=== PATIENT | female | born 1995 | race Asian ===

== ENCOUNTER 2022-03-09 08:55 | Outpatient (CLI) | payer OTHER, SELFPAY ==
--- NOTE | 2022-03-09 10:15 | CRLHL7_ITS ---
For Patients: As a result of the Century Cures Act, medical imaging exams and procedure reports are released immediately into your electronic medical record. You may view this report before your referring provider. If you have questions, please contact your health care provider. INDICATION: Left side Pelvic pain COMPARISON: none TECHNIQUE: 2D gonzalez scale and color Doppler images were acquired of the pelvis using a transabdominal and transvaginal approach. FINDINGS: Sonographic images demonstrate a normal size and smooth outer contour of the uterus. Uterus measures 7 point cm in length by 2.9 cm in AP diameter by 4.7 cm in transverse dimension. The myometrium has a normal uniform echotexture. The endometrial lining measures 2 mm in composite thickness. The right ovary measures 3.3 x 2.1 x 1.6 cm in size and the left ovary measures 2.8 x 1.6 x 2.0 cm. The ovaries demonstrate normal arterial and venous blood flow on color Doppler analysis. There are no suspicious fluid collections within the cul-de-sac. IMPRESSION: Normal ovaries. No adnexal mass or excess pelvic free fluid. Dictated by José Miguel Willams MD @ 03/09/2022 10:59:32 AM (Electronically Signed)
== END 2022-03-09 08:56 | disposition home or self-care (01) ==
LOC: US 08:56
PROVIDERS: PCP Family Medicine; Visit Provider Physician Assistant
DX: R10.2 Pelvic and perineal pain (principal); N13.30 Unspecified hydronephrosis; N20.1 Calculus of ureter
CPT/HCPCS: 76830; 76856

== ENCOUNTER 2022-03-09 11:06 | Emergency (ER) | payer OTHER, SELFPAY ==
[2022-03-09 11:29] VITALS: BP 107/81; PULSE 92; RESP 18; TEMP 36.9; O2SAT 99; BMI 25.5
--- NOTE | 2022-03-09 11:56 | CRLHL7_ITS ---
For Patients: As a result of the Cures Act, medical imaging exams and procedure reports are released immediately into your electronic medical record. You may view this report before your referring provider. If you have questions, please contact your health care provider. INDICATION: Left lower quadrant pain. TECHNIQUE: CT abdomen and pelvis acquired with 54 mL Isovue 370 IV contrast. Coronal and sagittal reformats were generated. COMPARISON: None. FINDINGS: Lower chest: Unremarkable. Liver: Unremarkable. Gallbladder and bile ducts: Unremarkable. No stones or inflammation. No biliary dilation. Spleen: Unremarkable. Pancreas: Unremarkable. Adrenal glands: Unremarkable. No nodules. Kidneys and Ureters: Calcification in the proximal left ureter measures approximately 5 mm (2/47) and results in mild left hydronephrosis and a delayed nephrogram. Normal appearance of the right kidney. No right hydronephrosis. No cortical lesions on either side. Lymph Nodes and Retroperitoneum: Unremarkable. Vasculature: Unremarkable. GI tract: Unremarkable. Normal in caliber. Normal appendix. Peritoneum/Abdominal Wall: Unremarkable. No free air or free fluid. Pelvic Viscera: Unremarkable. Bladder: Unremarkable. Bones: Unremarkable for age. IMPRESSION: 1. Proximal left ureteral stone resulting in mild left hydronephrosis and delayed nephrogram. 2. No other significant CT abnormality in the abdomen or pelvis. Please note that all CT scans at this facility use dose modulation, iterative reconstruction, and/or weight-based dosing when appropriate to reduce radiation dose to as low as reasonably achievable. Dictated by Toro Jackson MD @ 03/09/2022 1:04:16 PM (Electronically Signed)
--- NOTE | 2022-03-09 11:57 | ED.ABDPAIN ---
HPI - Abdominal Pain General Chief Complaint: Abdominal Pain Stated Complaint: Lower left abdominal pain Time Seen by Provider: 03/09/22 11:22 History of Present Illness HPI narrative: This 26-year-old female comes in from OBGYN clinic because of severe left-sided abdominal pain. She states that she had an episode of this pain a couple weeks ago and again a couple days ago. He was very severe a couple days ago with nausea and vomiting. She had severe pain again today but at the time of arrival here in the emergency department her pain is improved again. She did have an ultrasound and labs done at the OBGYN clinic with reassuring results. She does not know of any family history of kidney stones and does not have any personal history of such. She does not report any fevers. Related Data Previous Rx's Medication Instructions Recorded hydrocodone 5 mg-acetaminophen 325 1 tab PO Q4-6H PRN pain #20 tabs 03/09/22 mg tablet ketorolac 10 mg tablet 10 mg PO Q8H 5 days #15 tabs 03/09/22 ondansetron HCl 4 mg tablet 4 mg PO Q6H #20 tabs 03/09/22 Allergies Allergy/AdvReac Type Severity Reaction Status Date / Time No Known Drug Allergies Allergy Verified 03/09/22 11:39 Review of Systems Narrative Constitutional: No fevers, no weight gain or loss. Eyes: No discharge. No vision changes. HENT: No congestion, no sore throat, no ear pain. Cardiovascular: No chest pain, no palpitations. Respiratory: No shortness of breath, no wheezes, no cough. Gastrointestinal: No diarrhea. Left-sided abdominal pain with occasional nausea and vomiting. Genitourinary: No dysuria, no hematuria. Musculoskeletal: Normal range of motion. Skin: No rashes, no pruritis. Neurological: No dizziness, weakness, sensory change, speech change. Endo/Heme/Allergies: No bruising or bleeding. No polydipsia. Pysch: no suicidality, no anxiety, no insomnia. All other systems reviewed and are negative. 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 HEENT: Normocephalic, atraumatic. Neck: Normal range of motion. Nontender. Supple. Heart: Regular. No murmurs. Normal rate. Intact distal pulses. Lungs: Clear to auscultation. No chest discomfort. No wheezes, rhonchi, or rales. Abdomen: Normal bowel sounds. Tenderness in the left abdomen.. No rebound tenderness. Genitalia: Deferred. Back: No midline tenderness. Normal range of motion. Extremities: Normal range of motion. No injury. Skin: Intact. No rash. Warm. No erythema or pallor. Neurologic: No altered sensation. No weakness. Alert and oriented. Psychiatric: No suicidality. No anxiety or depression. No insomnia. Nursing notes and vitals signs are reviewed. Const: Vital Signs, click to edit/add: Vital Signs - 24 hr 03/09/22 11:29 Temperature 98.4 F Pulse Rate [Pulse Oximeter] 92 Respiratory Rate 18 Blood Pressure [Ri ght Upper Arm] 107/81 Pulse Oximetry 99 Oxygen Delivery Me thod Room Air Course Vital Signs Vital signs: Initial Vital Signs Temperature 98.4 F 03/09/22 11:29 Temperature Source Temporal Artery Scan 03/09/22 11:29 Pulse Rate 92 03/09/22 11:29 Pulse Rhythm 03/09/22 11:29 Respiratory Rate 18 03/09/22 11:29 Blood Pressure 107/81 03/09/22 11:29 Blood Pressure Mean 89 03/09/22 11:29 Blood Pressure Position Supine 03/09/22 11:29 Pulse Oximetry 99 03/09/22 11:29 Oxygen Delivery Method 03/09/22 11:29 Vital Signs Temperature 98.4 F 03/09/22 11:29 Pulse Rate 92 03/09/22 11:29 Respiratory Rate 18 03/09/22 11:29 Blood Pressure 107/81 03/09/22 11:29 Pulse Oximetry 99 03/09/22 11:29 Oxygen Delivery Method 03/09/22 11:29 Temperature 98.4 F 03/09/22 11:29 Pulse Rate 92 03/09/22 11:29 Respiratory Rate 18 03/09/22 11:29 Blood Pressure 107/81 03/09/22 11:29 Pulse Oximetry 99 03/09/22 11:29 Oxygen Delivery Method 03/09/22 11:29 MDM - Abdominal Pain MDM Narrative Medical decision making narrative: This patient comes in with episodes of severe left-sided abdominal pain. At the time of my visit her pain is not severe. She did have labs including blood and urine along with an ultrasound in clinic just prior to arrival. An IV was established for purposes of a contrast enhanced CT scan of the abdomen and pelvis. CT imaging returns with evidence of a 5 mm stone in the left ureter. This would account for the patient's symptoms. No other labs or imaging was ordered as she just came from clinic where though studies were completed. The patient received prescription for Toradol, Norc, and Zofran. I advised her to return if symptoms are worsening or persistent. Imaging Data CT scan - abdomen: Radiologist's impression: 1. Proximal left ureteral stone resulting in mild left hydronephrosis and delayed nephrogram. 2. No other significant CT abnormality in the abdomen or pelvis. Discharge Plan Discharge Clinical Impression: Calculus, ureteral Patient Disposition: Home, Self-Care Condition: Improved Additional Instructions: Take medication as prescribed and needed. Follow up with MD or return if worsening. Prescriptions: New hydrocodone-acetaminophen 5-325 mg tablet 1 tab PO Q4-6H PRN (Reason: pain) Qty: 20 0RF ondansetron HCl 4 mg tablet 4 mg PO Q6H Qty: 20 0RF ketorolac 10 mg tablet 10 mg PO Q8H 5 Days Qty: 15 0RF Follow Up/Referrals: Van Boyer MD [Primary Care Provider] - Stand Alone Forms: [employer] Info Instructions
[2022-03-09 14:16] VITALS: BP 107/81; PULSE 92; RESP 18; TEMP 36.9
== END 2022-03-09 14:20 | disposition home or self-care (01) ==
PROVIDERS: Emergency Provider Emergency Medicine Emergency Medical Services; PCP Family Medicine
DX: N20.1 Calculus of ureter (principal)
CPT/HCPCS: 74177; 87086; 99284; 99285; Q9967

== ENCOUNTER 2022-03-24 20:04 | Emergency (ER) | payer OTHER, SELFPAY ==
[2022-03-24 20:57] VITALS: BP 119/84; PULSE 86; RESP 14; TEMP 36.3; O2SAT 97; BMI 25.8
[2022-03-24 21:16] LABS: Appearance Urine Slightly Cloudy (Clear); Bilirubin Urine Negative (Negative); Blood Urine 3+ (Negative); Color Urine Yellow (Yellow); Glucose Urine Negative (Negative); Ketones Urine Negative (Negative); Leukocyte Esterase Urine Trace (Negative); Nitrite Urine Negative (Negative); Protein Urine Trace (Negative); Specific Gravity Urine 1.015 (1.000-1.030); Urobilinogen Urine 0.2 (0.2-1.0)
--- NOTE | 2022-03-24 21:28 | ED.ABDPAIN ---
HPI - Abdominal Pain General Chief Complaint: Abdominal Pain Stated Complaint: Kidney stone Time Seen by Provider: 03/24/22 21:20 History of Present Illness HPI narrative: Pt is a 26 year old woman who was seen approximately 2 weeks ago with a 5 mm kidney stone on the left who presents with the return of her pain. Pt has no dysuria. test at her last vitis was negative and pt is on IM Depoprovera. Pt has had no nausea or vomiting but does have 6/10 pain in the left flank further down that at her last visit. She has been feeling well for the most part since being discharged 2 weeks ago. Pain is sharp and seems to radiate to the groin. Related Data Previous Rx's Medication Instructions Recorded hydrocodone 5 mg-acetaminophen 325 1 tab PO Q4-6H PRN pain #20 tabs 03/09/22 mg tablet ketorolac 10 mg tablet 10 mg PO Q8H 5 days #15 tabs 03/09/22 ondansetron HCl 4 mg tablet 4 mg PO Q6H #20 tabs 03/09/22 desogestrel 0.15 mg-ethinyl 1 tab PO QDAY #112 tabs 03/10/22 estradiol 0.03 mg tablet (Apri) tamsulosin 0.4 mg capsule 0.4 mg PO QDAY #14 caps 03/15/22 Allergies Allergy/AdvReac Type Severity Reaction Status Date / Time No Known Drug Allergies Allergy Verified 03/09/22 11:39 Review of Systems Status of ROS Reports: 10 or more systems reviewed and unremarkable except as noted in History and below [facility] Medical History Asthma Surgical History History of third molar tooth extraction Family History Family/Other Adopted 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 EYES: No scleral icterus. ENT: Tympanic membranes and oropharynx normal. THYROID: no thyroid nodules or thyromegaly. LYMPH: No supraclavicular or cervical lymphadenopathy. SKIN: Visible skin seen during exam normal or with benign process only. EXT: No dependent lower extremity pedal edema. HEART: Regular rate and rhythm with no murmurs, rubs, or gallops. LUNGS: Clear to auscultation bilaterally with no crackles or wheezes. ABD: Soft, non tender, non distended. PSYCH: Good eye contact, speech is not pressured. Const: Vital Signs, click to edit/add: Vital Signs - 24 hr 03/24/22 20:57 Temperature 97.3 F L Pulse Rate [Pulse Oximeter] 86 Respiratory Rate 14 Blood Pressure [Ri ght Upper Arm] 119/84 Pulse Oximetry 97 Oxygen Delivery Me thod Room Air Course Course Hospital Course: Pt seen and examined. IV placed. CT stone protocol requested. CBC, CMP, Amylase ordered. Pt given ns one liter, and toradol 30. Reevaluation(s) Reevaluation #1: Pt feeling better. Lab work does now show urinary WBCS concerning for infection. Time: 22:42 Vital Signs Vital signs: Initial Vital Signs Temperature 97.3 F L 03/24/22 20:57 Temperature Source Temporal Artery Scan 03/24/22 20:57 Pulse Rate 86 03/24/22 20:57 Pulse Rhythm 03/24/22 20:57 Respiratory Rate 14 03/24/22 20:57 Blood Pressure 119/84 03/24/22 20:57 Blood Pressure Mean 95 03/24/22 20:57 Blood Pressure Position Sitting 03/24/22 20:57 Pulse Oximetry 97 03/24/22 20:57 Oxygen Delivery Method 03/24/22 20:57 Vital Signs Temperature 97.3 F L 03/24/22 20:57 Pulse Rate 86 03/24/22 20:57 Respiratory Rate 14 03/24/22 20:57 Blood Pressure 119/84 03/24/22 20:57 Pulse Oximetry 97 03/24/22 20:57 Oxygen Delivery Method 03/24/22 20:57 Temperature 97.3 F L 03/24/22 20:57 Pulse Rate 86 03/24/22 20:57 Respiratory Rate 14 03/24/22 20:57 Blood Pressure 119/84 03/24/22 20:57 Pulse Oximetry 97 03/24/22 20:57 Oxygen Delivery Method 03/24/22 20:57 MDM - Abdominal Pain MDM Narrative Medical decision making narrative: Pt diagnosed with kidney stone roughly 2 weeks ago presents with return of pain lower on the left. Pt now has evidence of UTI. Pt treated with saline and toradol with improvement of symptoms. Pt has Tamsulosin and Hydrocodone at home. We will add Bactrim for UTI as well. Recommended aggresive hydration at home and follow up with PCP Sunday by phone to request a Urology consult for possible stone extraction. Differential Diagnosis Differential diagnosis: Likely abdominal pain, acute appendicitis, calculus of kidney, constipation, diverticulitis, endometriosis, gastroenteritis, pancreatitis and small bowel obstruction Medical Records Attestation: I reviewed the patient's medical records. Lab Data Labs: Lab Results 03/24/22 03/24/22 03/24/22 Range/Units 21:07 22:00 22:00 WBC 8.57 (4.50-11.00) K/uL RBC 5.02 (4.00-5.20) m/uL Hgb 14.5 (12.0-16.0) gm/dL Hct 42.9 (33.0-51.0) % MCV 86 (80-100) fL MCH 29 (26-34) pg MCHC 34 (32-36) gm/dL RDW Coeff of Princess 12.3 (11.5-15.5) % Plt Count 327 (140-440) K/uL Neut % (Auto) 72.4 H (42.0-72.0) % Lymph % (Auto) 19.3 L (20-44) % [place] % (Auto) 4.7 (0.0-11.0) % Eos % (Auto) 2.3 (0.0-7.0) % Baso % (Auto) 0.6 (0.0-3.0) % Neut # (Auto) 6.20 (1.7-7.0) K/uL Lymph # (Auto) 1.70 (0.90-2.90) K/uL [place] # (Auto) 0.40 (0.00-0.90) K/UL Eos # (Auto) 0.20 (0.00-0.50) K/uL Baso # (Auto) 0.05 (0.00-0.30) K/uL Abs Immat Gran (auto) 0.06 (0.00-0.30) K/uL Imm/Tot Granulo (auto) 0.7 % Sodium 140 (135-149) mmol/L Potassium 3.9 (3.6-5.1) mmol/L Chloride 102 (96-114) mmol/L Carbon Dioxide 25 (20-32) mmol/L BUN 11 (5-24) mg/dL Creatinine 0.6 (0.5-1.5) mg/dL Estimated Creat Clear 118.95 Estimated GFR 125 ml/min Glucose 104 (60-115) mg/dL Calcium 9.4 (8.4-10.6) mg/dL Total Bilirubin 0.7 (0.1-1.5) mg/dL AST 28 (12-35) U/L ALT 22 (4-35) U/L Alkaline Phosphatase 88 (40-150) U/L Total Protein 8.5 H (6.0-8.3) g/dL Albumin 4.9 (3.3-5.0) g/dL Amylase 59 (18-89) U/L Urine Color Yellow (Yellow) Urine Appearance Slightly Cloudy A (Clear) Urine pH 7.0 (5.0-8.5) Ur Specific [place] 1.015 (1.000-1.030) Urine Protein Trace A (Negative) Urine Glucose (UA) Negative (Negative) Urine Ketones Negative (Negative) Urine Blood 3+ A (Negative) Urine Nitrite Negative (Negative) Urine Bilirubin Negative (Negative) Urine Urobilinogen 0.2 (0.2-1.0) Ur Leukocyte Esterase Trace A (Negative) Urine RBC 0-2 (0-2) Urine WBC 10-25 A (0-5) Ur Squamous Epith Cells Few (None-Few) Urine Bacteria None (None) Discharge Plan Discharge Clinical Impression: Kidney calculi Condition: Stable Instructions: Kidney Stones (ED) Additional Instructions: Plenty of fluids Bactrim as directed Continue current medications Follow up with PCP if stone not passed by [facility] to discuss Urology consultation. Activity Level: No Restrictions Discharge Diet: Regular Prescriptions: No Action hydrocodone-acetaminophen 5-325 mg tablet 1 tab PO Q4-6H PRN (Reason: pain) Qty: 20 0RF ondansetron HCl 4 mg tablet 4 mg PO Q6H Qty: 20 0RF ketorolac 10 mg tablet 10 mg PO Q8H 5 Days Qty: 15 0RF desogestrel-ethinyl estradiol [Apri] 0.15-0.03 mg tablet 1 tab PO QDAY Qty: 112 3RF Rx Instructions: TO TAKE CONTINUOUSLY, ALLOWING FOR A PERIOD EVERY 3 MONTHS tamsulosin 0.4 mg capsule 0.4 mg PO QDAY Qty: 14 0RF Follow Up/Referrals: Van Boyer MD [Primary Care Provider] - Stand Alone Forms: [employer] Info Instructions
--- NOTE | 2022-03-24 21:32 | CRLHL7_ITS ---
For Patients: As a result of the Century Cures Act, medical imaging exams and procedure reports are released immediately into your electronic medical record. You may view this report before your referring provider. If you have questions, please contact your health care provider. INDICATION: Left flank pain. TECHNIQUE: CT abdomen and pelvis without contrast. COMPARISON: None. FINDINGS: Lower chest: Unremarkable. Liver: Normal in size and attenuation. No suspicious masses. Gallbladder and bile ducts: No stones or inflammation. No biliary dilatation. Pancreas: Unremarkable. No mass or inflammation. Spleen: Normal in size. No masses. Adrenal glands: Normal in size. No nodules. Kidneys: Normal right kidney. 5 mm stone within the left mid ureter with associated mild proximal hydroureteronephrosis. GI tract: Unremarkable. Normal in caliber. No sign of mass or inflammation. The appendix is not clearly visualized. Vasculature: Abdominal aorta is normal in caliber. Lymph nodes: No lymphadenopathy. Peritoneum/Abdominal Wall: Unremarkable. No free air or significant free fluid. Pelvis: Unremarkable bladder. No pelvic masses. Bones: Unremarkable for age. IMPRESSION: 5 mm stone within the left mid ureter with associated mild hydroureteronephrosis. Please note that all CT scans at this facility use dose modulation, iterative reconstruction, and/or weight-based dosing when appropriate to reduce radiation dose to as low as reasonably achievable. Dictated by Jacob Asher MD @ 03/24/2022 10:18:08 PM (Electronically Signed)
[2022-03-24 21:36] LABS: RBC Urine 0-2 (0-2); Squamous Epithelial Cell Urine Few (None-Few)
[2022-03-24] MEDS: KETOROLAC 30 MG/ML inj IVP (22:00)
[2022-03-24 22:21] LABS: Basophils Absolute Auto 0.05 K/uL (0.00-0.30); Basophils Percent Auto 0.6 % (0.0-3.0); Eosinophils Percent Auto 2.3 % (0.0-7.0); Hematocrit 42.9 % (33.0-51.0); Hemoglobin* 14.5 gm/dL (12.0-16.0); Immature Granulocytes Abs Auto 0.06 K/uL (0.00-0.30); Immature Granulocytes Pct Auto 0.7 %; Lymphocytes Percent Auto 19.3 % (20-44); Mean Corpuscular HGB Conc 34 gm/dL (32-36); Mean Corpuscular Hemoglobin 29 pg (26-34); Mean Corpuscular Volume 86 fL (80-100); Monocytes Percent Auto 4.7 % (0.0-11.0); Neutrophils Percent Auto 72.4 % (42.0-72.0); Platelet Count* 327 K/uL (140-440); RDW Coefficient of Variation % 12.3 % (11.5-15.5); Red Blood Count 5.02 m/uL (4.00-5.20); White Blood Count* 8.57 K/uL (4.50-11.00)
[2022-03-24 22:27] LABS: Albumin* 4.9 g/dL (3.3-5.0); Chloride* 102 mmol/L (96-114); Potassium* 3.9 mmol/L (3.6-5.1); Sodium* 140 mmol/L (135-149)
[2022-03-24 22:29] LABS: Amylase* 59 U/L (18-89); Bilirubin Total* 0.7 mg/dL (0.1-1.5); Carbon Dioxide* 25 mmol/L (20-32); Creatinine* 0.6 mg/dL (0.5-1.5); Est. Creatinine Clearance* 118.95; Estimated Glomerular Filt Rate 125 ml/min
[2022-03-24 22:30] LABS: Alanine Aminotransferase* 22 U/L (4-35); Alkaline Phosphatase* 88 U/L (40-150); Aspartate Amino Transferase* 28 U/L (12-35); Blood Urea Nitrogen* 11 mg/dL (5-24); Calcium* 9.4 mg/dL (8.4-10.6); Glucose* 104 mg/dL (60-115); Slide Review Reflex No; Total Protein* 8.5 g/dL (6.0-8.3)
== END 2022-03-24 23:10 | disposition home or self-care (01) ==
PROVIDERS: Emergency Provider Internal Medicine; PCP Family Medicine
DX: N20.0 Calculus of kidney (principal)
CPT/HCPCS: 36415; 74176; 80053; 81001; 82150; 85025; 87086; 96374; 99283; 99284; J1885

== ENCOUNTER 2022-04-10 11:20 | Outpatient (CLI) | payer OTHER, SELFPAY ==
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
== END 2022-04-10 11:21 | disposition home or self-care (01) ==
LOC: LONREF 04-12 11:12
PROVIDERS: PCP Family Medicine; Visit Provider Family Medicine
DX: Z01.818 Encounter for other preprocedural examination (principal)
CPT/HCPCS: 87086

== ENCOUNTER 2022-04-11 18:34 | Emergency (ER) | payer OTHER, SELFPAY ==
[2022-04-11] VITALS (8 sets, daily range): BP systolic 113–133; BP diastolic 77–90; PULSE 77–87; RESP 18; TEMP 36.4; O2SAT 99–100; BMI 26.8
--- NOTE | 2022-04-11 19:55 | ED.GENADULT ---
HPI - General Adult General Chief complaint: Urogenital Problems, Female Stated complaint: kidney stone, bladder won't empty Time Seen by Provider: 04/11/22 19:30 Source: patient History of Present Illness HPI narrative: Patient is a 26-year-old woman who was diagnosed with a 5 mm ureteral stone on the left at the end of February. She has not passed the stone, has been seen a couple times since then, was diagnosed with UTI on March 24 and prescribed Bactrim, completed that course, saw Dr. Major in clinic yesterday with some urinary symptoms, a UA was done which showed 5-10 white cells and 5-10 red cells, culture grew out less than 50,000 colonies of mixed Gram-positive. She was started on Bactrim again yesterday. She comes into the ER tonight saying that she feels like she is not emptying her bladder, she has discomfort in her bladder area. She has had nausea throughout this whole time, no change in that. She does tell me that she has a history of overactive bladder prior to the kidney stone, and symptoms feels somewhat like that. She does not have dysuria. She has not had any fevers or vomiting. She does not have flank pain. She is scheduled to have surgery for the kidney stone in 3 days time. She just feels like something is wrong because she has not had symptoms like this at any point during dealing with the kidney stone. Related Data Previous Rx's Medication Instructions Recorded hydrocodone 5 mg-acetaminophen 325 1 tab PO Q4-6H PRN pain #20 tabs 03/09/22 mg tablet ketorolac 10 mg tablet 10 mg PO Q8H 5 days #15 tabs 03/09/22 ondansetron HCl 4 mg tablet 4 mg PO Q6H #20 tabs 03/09/22 desogestrel 0.15 mg-ethinyl 1 tab PO QDAY #112 tabs 03/10/22 estradiol 0.03 mg tablet (Apri) sulfamethoxazole 800 1 tab PO BID #10 tabs 04/11/22 mg-trimethoprim 160 mg tablet (Bactrim DS) Allergies Allergy/AdvReac Type Severity Reaction Status Date / Time No Known Drug Allergies Allergy Verified 04/10/22 10:24 Review of Systems Status of ROS: Reports: 10 or more systems reviewed and unremarkable except as noted in History and below PFSH PFS Medical History Asthma Surgical History History of third molar tooth extraction Family History Family/Other Adopted 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 . Nonsmoker Smoking Status: Never smoker Do you use any of these nicotine containing products: None Second hand tobacco smoke exposure: No How often do you have a drink containing alcohol: monthly or less How many standard drinks containing alcohol do you have on a typical day: 1 or 2 How often do you have six or more drinks on one occasion: Never AUDIT-C Alcohol total score: 1 Non-prescribed substance use: denies use service: No Exam Narrative: Exam Narrative: Vital signs as noted above. In general, an alert, nontoxic young woman. Looks mildly uncomfortable. Head: Normocephalic, atraumatic. Eyes: Pupils are equal reactive. Extraocular movements are full. Conjunctivae are normal. ENT: Mucous membranes are moist. Throat is normal. Neck: Supple without lymphadenopathy. Heart: Regular rate and rhythm. No murmur or rub. Lungs: Clear bilaterally. No increased work of breathing, crackles or wheezes. No CVA tenderness. Abdomen: Soft and nondistended. Mild suprapubic tenderness without rebound guarding or rigidity. Extremities: Well perfused. No edema. No calf tenderness. Pulses intact. Neurologic: Patient is alert and oriented to person and place. Speech is fluent. Face is symmetric. Moves all extremities equally. Affect: Normal. Skin: Warm and dry. Well perfused. Const: Vital Signs, click to edit/add: Vital Signs - 24 hr 04/11/22 18:46 04/11/22 21:27 04/11/22 21:30 Temperature 97.6 F Pulse Rate 77 79 Pulse Rate [Right Pulse Oximeter] 78 Respiratory Rate 18 Blood Pressure Blood Pressure [Ri ght Upper Arm] 133/90 H Pulse Oximetry 100 100 100 Oxygen Delivery Me thod Room Air 04/11/22 21:31 04/11/22 21:32 04/11/22 21:45 Temperature Pulse Rate 79 78 86 Pulse Rate [Right Pulse Oximeter] Respiratory Rate Blood Pressure 114/77 Blood Pressure [Ri ght Upper Arm] Pulse Oximetry 100 100 100 Oxygen Delivery Me thod 04/11/22 22:00 04/11/22 22:01 Temperature Pulse Rate 87 77 Pulse Rate [Right Pulse Oximeter] Respiratory Rate Blood Pressure 113/81 Blood Pressure [Ri ght Upper Arm] Pulse Oximetry 99 99 Oxygen Delivery Me thod Documenting provider has reviewed patient's vital signs: yes Course Course Hospital Course: I reviewed previous records, including the UA and urine culture from yesterday. She is currently taking Bactrim. We did do a bladder scan which showed 20 mL of urine. Reviewed with her that I do think she is emptying her bladder adequately. I ordered another UA to make sure that it is not looking worse. We will go ahead and check some labs to make sure her creatinine is normal, that there are no signs of more systemic illness today. She is afebrile, nontoxic looking. She did have further nausea here, 1 episode of reported vomiting. She states that she had taken Zofran at home. Therefore I did have them place an IV and gave her Reglan here as well as a L of fluid. She is feeling improved. I checked labs, her CBC shows a normal white blood cell count, hemoglobin of 13.6. Essentially normal diff. metabolic panel is normal, specifically her BUN is 14 and creatinine is 0.9. Blood sugar is normal, electrolytes are normal. CRP is less than 0.5. Urinalysis today shows trace ketones, 3+ blood, 25-50 red blood cells. 10-25 white blood cells, but again yesterday's urine culture was negative. I am less concerned about UTI in the absence of a positive culture, fever, elevated white blood cell count or inflammatory markers. I think if her symptoms were related to infection, at least 1 of these would be abnormal by now. She is on the Bactrim, and I think she can continue that. I wonder if pyridium would help her symptomatically in terms of this sensation she has, but I have asked her to run that by Urology tomorrow before she starts it. She does have this history of previous overactive bladder, which may be contributing. For now, will discharge home, continue with current medications. Follow-up for procedure as planned in 3 days. Return in the interim for acute worsening such as fevers, uncontrolled vomiting, chills, severe pain. Vital Signs Vital signs: Initial Vital Signs Temperature 97.6 F 04/11/22 18:46 Temperature Source Temporal Artery Scan 04/11/22 18:46 Pulse Rate 78 04/11/22 18:46 Respiratory Rate 18 04/11/22 18:46 Blood Pressure 133/90 H 04/11/22 18:46 Blood Pressure Mean 104 04/11/22 18:46 Blood Pressure Position Sitting 04/11/22 18:46 Pulse Oximetry 100 04/11/22 18:46 Oxygen Delivery Method 04/11/22 18:46 Vital Signs Temperature 97.6 F 04/11/22 18:46 Pulse Rate 78 04/11/22 18:46 Respiratory Rate 18 04/11/22 18:46 Blood Pressure 133/90 H 04/11/22 18:46 Pulse Oximetry 100 04/11/22 18:46 Oxygen Delivery Method 04/11/22 18:46 Temperature 97.6 F 04/11/22 18:46 Pulse Rate 77 04/11/22 22:01 Respiratory Rate 18 04/11/22 18:46 Blood Pressure 113/81 04/11/22 22:01 Pulse Oximetry 99 04/11/22 22:01 Oxygen Delivery Method 04/11/22 18:46 Medical Decision Making Lab Data Labs: Lab Results 04/11/22 04/11/22 04/11/22 Range/Units 19:46 20:34 20:34 WBC 11.00 (4.50-11.00) K/uL RBC 4.71 (4.00-5.20) m/uL Hgb 13.6 (12.0-16.0) gm/dL Hct 40.4 (33.0-51.0) % MCV 86 (80-100) fL MCH 29 (26-34) pg MCHC 34 (32-36) gm/dL RDW Coeff of Princess 12.2 (11.5-15.5) % Plt Count 313 (140-440) K/uL Neut % (Auto) 72.8 H (42.0-72.0) % Lymph % (Auto) 18.2 L (20-44) % [place] % (Auto) 5.5 (0.0-11.0) % Eos % (Auto) 2.9 (0.0-7.0) % Baso % (Auto) 0.5 (0.0-3.0) % Neut # (Auto) 8.00 H (1.7-7.0) K/uL Lymph # (Auto) 2.00 (0.90-2.90) K/uL [place] # (Auto) 0.60 (0.00-0.90) K/UL Eos # (Auto) 0.32 (0.00-0.50) K/uL Baso # (Auto) 0.06 (0.00-0.30) K/uL Abs Immat Gran (auto) 0.01 (0.00-0.30) K/uL Imm/Tot Granulo (auto) 0.1 % Sodium 140 (135-149) mmol/L Potassium 4.2 (3.6-5.1) mmol/L Chloride 107 (96-114) mmol/L Carbon Dioxide 23 (20-32) mmol/L BUN 14 (5-24) mg/dL Creatinine 0.9 (0.5-1.5) mg/dL Estimated Creat Clear 82.63 Estimated GFR 89 ml/min Glucose 93 (60-115) mg/dL Calcium 9.4 (8.4-10.6) mg/dL C-Reactive Protein < 0.5 L (0.5-1.0) mg/dL Urine Color Yellow (Yellow) Urine Appearance Cloudy A (Clear) Urine pH 5.5 (5.0-8.5) Ur Specific [place] 1.025 (1.000-1.030) Urine Protein Negative (Negative) Urine Glucose (UA) Negative (Negative) Urine Ketones Trace A (Negative) Urine Blood 3+ A (Negative) Urine Nitrite Negative (Negative) Urine Bilirubin Negative (Negative) Urine Urobilinogen 0.2 (0.2-1.0) Ur Leukocyte Esterase Trace A (Negative) Urine RBC 25-50 A (0-2) Urine WBC 10-25 A (0-5) Urine WBC Clumps None (None) Ur Squamous Epith Cells Few (None-Few) Urine Bacteria None (None) Discharge Plan Discharge Clinical Impression: Kidney stone, Bladder spasms Patient Disposition: Home, Self-Care Condition: Improved Instructions: Kidney Stones (ED) Additional Instructions: Follow-up with Urology as planned. Call clinic tomorrow, and ask if you could try Pyridium for your current symptoms. If at any point you develop high fevers, persistent vomiting, chills, or other worsening, return to the emergency department. Otherwise, continue current medications. Prescriptions: No Action hydrocodone-acetaminophen 5-325 mg tablet 1 tab PO Q4-6H PRN (Reason: pain) Qty: 20 0RF ondansetron HCl 4 mg tablet 4 mg PO Q6H Qty: 20 0RF ketorolac 10 mg tablet 10 mg PO Q8H 5 Days Qty: 15 0RF desogestrel-ethinyl estradiol [Apri] 0.15-0.03 mg tablet 1 tab PO QDAY Qty: 112 3RF Rx Instructions: TO TAKE CONTINUOUSLY, ALLOWING FOR A PERIOD EVERY 3 MONTHS sulfamethoxazole-trimethoprim [Bactrim DS] 800-160 mg tablet 1 tab PO BID Qty: 10 0RF Follow Up/Referrals: Van Boyer MD [Primary Care Provider] - Stand Alone Forms: [employer] Info Instructions
[2022-04-11 19:57] LABS: Appearance Urine Cloudy (Clear); Bilirubin Urine Negative (Negative); Blood Urine 3+ (Negative); Color Urine Yellow (Yellow); Glucose Urine Negative (Negative); Ketones Urine Trace (Negative); Leukocyte Esterase Urine Trace (Negative); Nitrite Urine Negative (Negative); Protein Urine Negative (Negative); Specific Gravity Urine 1.025 (1.000-1.030); Urobilinogen Urine 0.2 (0.2-1.0); pH Urine 5.5 (5.0-8.5)
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
[2022-04-11 20:34] LABS: RBC Urine 25-50 (0-2); Squamous Epithelial Cell Urine Few (None-Few)
[2022-04-11] MEDS: METOCLOPRAMIDE HCL 10 MG in 0.9 % SODIUM CHLORIDE 100 ml 100 ML 306 MG IVPB (20:36)
[2022-04-11] MEDS: 0.9 % SODIUM CHLORIDE 1000 ml 1,000 ML IV (20:37)
[2022-04-11 21:00] LABS: Chloride* 107 mmol/L (96-114); Potassium* 4.2 mmol/L (3.6-5.1); Sodium* 140 mmol/L (135-149)
[2022-04-11 21:03] LABS: Creatinine* 0.9 mg/dL (0.5-1.5); Est. Creatinine Clearance* 82.63; Estimated Glomerular Filt Rate 89 ml/min
[2022-04-11 21:04] LABS: Blood Urea Nitrogen* 14 mg/dL (5-24); Calcium* 9.4 mg/dL (8.4-10.6); Carbon Dioxide* 23 mmol/L (20-32); Glucose* 93 mg/dL (60-115)
[2022-04-11 21:09] LABS: C Reactive Protein* < 0.5 mg/dL (0.5-1.0)
[2022-04-11 21:44] LABS: Basophils Absolute Auto 0.06 K/uL (0.00-0.30); Basophils Percent Auto 0.5 % (0.0-3.0); Eosinophils Absolute Auto 0.32 K/uL (0.00-0.50); Eosinophils Percent Auto 2.9 % (0.0-7.0); Hematocrit 40.4 % (33.0-51.0); Hemoglobin* 13.6 gm/dL (12.0-16.0); Immature Granulocytes Abs Auto 0.01 K/uL (0.00-0.30); Immature Granulocytes Pct Auto 0.1 %; Lymphocytes Percent Auto 18.2 % (20-44); Mean Corpuscular HGB Conc 34 gm/dL (32-36); Mean Corpuscular Hemoglobin 29 pg (26-34); Mean Corpuscular Volume 86 fL (80-100); Monocytes Percent Auto 5.5 % (0.0-11.0); Neutrophils Percent Auto 72.8 % (42.0-72.0); Platelet Count* 313 K/uL (140-440); RDW Coefficient of Variation % 12.2 % (11.5-15.5); Red Blood Count 4.71 m/uL (4.00-5.20)
[2022-04-11 21:46] LABS: Slide Review Reflex No
== END 2022-04-11 22:16 | disposition home or self-care (01) ==
PROVIDERS: Emergency Provider Emergency Medicine; PCP Family Medicine
DX: N20.0 Calculus of kidney (principal); N32.89 Other specified disorders of bladder
CPT/HCPCS: 36415; 80048; 81001; 85025; 86140; 87086; 96365; 99284; J2765; J7030

== ENCOUNTER 2023-05-30 08:47 | Outpatient (CLI) | payer OTHER, SELFPAY ==
--- NOTE | 2023-05-30 08:45 | CRLHL7_ITS ---
For Patients: As a result of the Cures Act, medical imaging exams and procedure reports are released immediately into your electronic medical record. You may view this report before your referring provider. If you have questions, please contact your health care provider. INDICATION: Ureteral stone TECHNIQUE: Conventional two-dimensional grayscale ultrasound of the kidneys and bladder. COMPARISON: None. FINDINGS: The kidneys are normal in size, shape and echogenicity. No stone is demonstrated. No hydronephrosis is evident. The bladder is grossly negative. IMPRESSION: Sonographically normal kidneys. Dictated by Man Sharma MD @ 05/30/2023 10:17:14 AM (Electronically Signed)
--- OUTSIDE RECORDS SUMMARY | 2023-05-30 08:55 | XMS_ITS ---
Author Name Unknown Organization [facility] Address [address] [place] [address] Care Team Providers Care Inspector Aluminum Boat Name Role Phone Unavailable Unavailable Unavailable Surgery Details Not on file Complications Check Surgery Details section. Procedure Estimated Blood Loss Check Surgery Details section. Procedure Findings Check Surgery Details section. Procedure Specimens Taken Check Surgery Details section.
--- OUTSIDE RECORDS SUMMARY | 2023-05-30 08:55 | XMS_ITS | Encounter Summary ---
Author Name Unknown Organization [facility] Address [address] [place] [address] Care Team Providers Care Home Care Liaison Name Role Phone Unavailable Primary Care Provider Unavailabl e Reason for Visit * Reason Onset Date Comments Error 10/04/2022 * Appointment Request (Routine) - Authorized Specialty Diagnoses / Procedures Referred By Contac t Referred To Contact Express or Urgent Care Referral ID Status Reason Start Date Expiration Date V isits Requested Visits Authorized [id number] Authorized 09/15/2022 09/15/2023 1 1 Encounter Details Date Type Department Care Team (Late st Contact Info) Description 07/27/2022 6:30 PM CDT Office Visit Urgent [facility] in [place], [place] [address] [place] [phone] Raz Leon APRN, C.N.P., D.N.P. ERRONEOUS ENCOUNTER--DISREGARD (Primary Dx) Discharge Disposition: Home or Self Care Social History Tobacco Use Types Packs/Day Years Used Date Smoking Tobacco: Never Smokeless Tobacco: Never Tobacco Cessation:Counseling Given: Not Answered Nutrition Answer Date Recorded Nutrition: EVOO Fat Source Unknown 09/12 Nutrition: Servings of Fruits/Vegetables per Day Not on file 09/12/2022 Dental Answer Date Recorded Dental: Regular Dentist Unknown 09/13/19 23 Sex and Gender Information Value Date Recorded Sex Assigned at Not on file Gender Identity Not on file Sexual Orientation Not on file documented as of this encounter Progress Notes * Raz Leon APRN, C.N.P., D.N.P. - 07/27/2022 6:30 PM CDT This encounter was created in error - please disregard. documented in this encounter Plan of Treatment Not on file documented as of this encounter Procedures Procedure Name Priority Date/Time Associated Diagnosis Comments STREP GROUP A, PCR, POCT Routine 07/27/2022 7:34 PM CDT STREP GROUP A, PCR, POCT Routine 07/27/2022 7:34 PM CDT documented in this encounter Results * Strep Group A, PCR, Point of Care (07/27/2022 7:34 PM CDT) Strep Group A, PCR, POCT Negative Negative 09/22/2022 10:59 AM CDT NPRG 07/27/2022 7:34 PM CDT 07/27/2022 7:36 PM CDT Raz Leon APRN C.N.P., D.N.P. LAB P OCT ORDERABLES - DEVICE Performing Organization Address City/[facility]/ZIP Co de Phone Number [facility] [address] [place] [address], [facility] NPRG [place] [address] [place] [address] * Strep Group A, PCR, Point of Care (07/27/2022 7:34 PM CDT) Strep Group A, PCR, POCT Collected DEFAULT 07/27/2022 7:36 PM CDT NPRG 07/27/2022 7:34 PM CDT 07/27/2022 7:36 PM CDT Sheridan White APRN.N.P., D.N.P. LAB P OCT ORDERABLES - DEVICE Performing Organization Address City/[facility]/ZIP Co de Phone Number [facility] [address] [place] [address], [facility] [place] [address] [place] [address] documented in this encounter Visit Diagnoses Diagnosis ERRONEOUS ENCOUNTER--DISREGARD- Primary documented in this encounter
--- OUTSIDE RECORDS SUMMARY | 2023-05-30 08:55 | XMS_ITS | Encounter Summary ---
Author Name Unknown Organization [facility] Address [address] [place] [address] Care Team Providers Care Ferry Boat Captain Name Role Phone Unavailable Primary Care Provider Unavailabl e Reason for Visit * Reason Comments COVID Inquiry POS on 07/12; post cov id sx's; ck for pneumonia. Hx of testing POS covid in past Encounter Details Date Type Department Care Team (Late st Contact Info) Description 07/27/2022 6:30 PM CDT Office Visit Urgent Care, [facility], in [place], [place] [address] [place] [phone] Raz Leon APRN, C.N.P., D.N.P. Sinusitis (Primary Dx); Cough Unspecified Type; Sore Throat Discharge Disposition: Home or Self Care Social History Tobacco Use Types Packs/Day Years Used Date Smoking Tobacco: Never Assessed Sex and Gender Information Value Date Recorded Sex Assigned at Not on file Gender Identity Not on file Sexual Orientation Not on file documented as of this encounter Last Filed Vital Signs Vital Sign Reading Time Taken Comments Blood Pressure 101/69 07/27/2022 6:53 PM CDT Pulse 101 07/27/2022 6:53 PM CDT Temperature 37.2 ??C (99 ??F) 07/27/2022 6:53 PM CDT Respiratory Rate - - Oxygen Saturation 97% 07/27/2022 6:53 PM CDT Inhaled Oxygen Concentration - - Weight 55.5 kg (122 lb 5.7 oz) 07/27/2022 6:53 P M CDT Height - - Body Mass Index - - documented in this encounter Patient Instructions * Attachments The following attachments cannot be sent through Care Everywhere. * Caring for Your Cough (Haitian) documented in this encounter Progress Notes * Raz Leon APRN, C.N.P., D.N.P. - 07/27/2022 6:30 PM CDT SUBJECTIVE CHIEF COMPLAINT / REASON FOR VISIT COVID Inquiry (POS on 07/12; post covid sx's; ck for pneumonia. Hx of testing POS covid in past) HISTORY OF PRESENT ILLNESS Clementina Mtz is a 26 y.o. female who presents for evaluation of her upper respiratory symptoms. Patient reports that she initially tested positive for covered for the 3rd time beginning of the month. She has had fatigue, productive cough sinus pressure as well as some intermittent chills. She a coughing spells with metallic taste but not seeing any blood-tinged sputum. Symptoms have been ongoingfor the last 2 weeks which prompted this visit. REVIEW OF SYSTEMS A brief review of systems was negative except for that mentioned in the history of present of illness. The patient's social history, medical history, and home medications were reviewed in the electronicmedical record. ALLERGIES/CONTRAINDICATIONS No Known Allergies OBJECTIVE VITAL SIGNS BP 101/69 Pulse 101 Temp 37.2 ??C (Temporal) Wt 55.5 kg SpO2 97% BMI 19.66 kg/m?? PHYSICAL EXAMINATION General: This patient is alert and in no acute distress. HEENT: Head is normocephalic. Eyes: Pupils are PERRLA. Conjunctivae are clear without any discharge, edema or erythema. Ears: Auditory canals are clear without erythema or edema. TMs are pearly gonzalez and intact without erythema. Mouth: Mucous membranes are moist. Posterior pharynx clear without erythema or exudates. Neck: Supple. Full range of motion without lymphadenopathy or meningismus. Respiratory: Effort is easy. Lung sounds are clear to auscultation. No retractions or accessory muscle use. Cardiovascular: S1 & S2 are present. Normal rate and rhythm. Musculoskeletal: Grossly intact. No deformities are noted. Skin: Normal color, temperature and moisture. No rashes or lesions are noted. DIAGNOSTICS Recent Results (from the past 24 hour(s)) Strep Group A, PCR, Point of Care Collection Time: 07/27/22 7:34 PM Result Value Strep Group A, PCR, POCT Collected Strep Group A, PCR, Point of Care Collection Time: 07/27/22 7:38 PM Result Value Strep Group A, PCR, POCT Negative DX Chest AP or PA and Lateral 2 Views Result Date: 07/27/2022 Impression: No acute findings. ASSESSMENT / PLAN #1 Sinusitis - amoxicillin-pot clavulanate (AUGMENTIN) 875-125 mg per tablet; Take 1 tablet by mouth 2 (two) times a day for 5 days., Starting Atiya 07/27/2022, Until Sun08/01/2022, Normal #2 Cough Unspecified Type - DX Chest AP or PA and Lateral 2 Views; Future; Expected date: 07/27/2022 - benzonatate (TESSALON) 200 mg capsule; Take 1 capsule (200 mg total) by mouth 3 (three) times a day as needed for cough for up to 7 days., Starting Atiya 07/27/2022, Until Atiya 08/03/2022 at 2359, Normal - predniSONE (DELTASONE) 20 mg tablet; Take 2 tablets (40 mg total) by mouth daily for 5 days., Starting Atiya 07/27/2022, Until Sun08/01/2022, Normal #3 Sore Throat - Strep Group A, PCR, Point of Care Other orders - Strep Group A, PCR, Point of Care Given her prolonged sinus symptoms with maxillary tenderness to palpation, will treat with Augmentin for 5 days as prescribed. Chest x-ray was completed today which was negative for any acute findings. She should start the steroid prescription tomorrow benzonatate up to 3 times a day as needed for her cough. We discussed watchful monitoring and symptomatic home care measures. Cover cough, wash hands frequently. Encouraged plenty of fluids to keep up on hydration. May benefit from humidifier in the room as well as steam inhalation to help with the cough. Sgci-uog-[id number] natural cough medication that has honey based or use of honey beneficial. May use Tylenol alternating with ibuprofen case of any fevers. Follow-up if symptoms do not slowly improve or for any new concerning symptoms as needed. Electronically signed by: Raz Leon APRN, C.N.P., D.N.P. 07/27/22 7:55 PM CDT documented in this encounter Plan of Treatment Not on file documented as of this encounter Procedures Procedure Name Priority Date/Time Associated Diagnosis Comments STREP GROUP A, PCR, POCT Routine 07/27/2022 7:38 PM CDT STREP GROUP A, PCR, POCT Routine 07/27/2022 7:34 PM CDT Sore Throat documented in this encounter Results * Strep Group A, PCR, Point of Care (07/27/2022 7:38 PM CDT) Strep Group A, PCR, POCT CANCELED 09/28/2022 4:35 PM CDT NPRG Comment: REVISED RESULTS ----PREVIOUSLY REPORTED ---- Negative, Flagged as: Normal (Reported 07/27/2022 19:38) 07/27/2022 7:38 PM CDT 07/27/2022 7:53 PM CDT Narrative [facility] - 09/28/2022 4:35 PM CDT Strep Group A, PCR, POCT was cancelled on 09/28/2022 at 16:35; Specimen was misidentified at collection. Generic [facility] POCT ORDERABLES - DEVICE [facility] [address] [place] [address], [facility] NPRG [place] [address] [address] [place] [address] * Strep Group A, PCR, Point of Care (07/27/2022 7:34 PM CDT) Strep Group A, PCR, POCT CANCELED 09/28/2022 4:44 PM CDT NPRG Comment: REVISED RESULTS ----PREVIOUSLY REPORTED ---- Collected, Flagged as: N/A (Reported 07/27/2022 19:36) Swab (Throat) 07/27/2022 7:3 4 PM CDT 07/27/2022 7:36 PM CDT Narrative [facility] - 09/28/2022 4:44 PM CDT Strep Group A PCR, POCT was cancelled on 09/28/2022 at 16:44; Specimen was misidentified at collection. Raz Leon APRN, C.N.P., D.N.P. LAB P OCT ORDERABLES - DEVICE [facility] [address] [place] [address], [facility] NPRG [facility] [address] [place] [address] documented in this encounter Visit Diagnoses Diagnosis Sinusitis- Primary Cough Unspecified Type Sore Throat documented in this encounter
--- OUTSIDE RECORDS SUMMARY | 2023-05-30 08:55 | XMS_ITS | Encounter Summary ---
Author Name Unknown Organization [facility] Address [address] [place] [address] Care Team Providers Care Certified Tumor Registrar Name Role Phone Unavailable Primary Care Provider Unavailabl e Encounter Details Date Type Department Care Team (Latest Contact Info) Description 07/27/2022 7:33 PM CDT - 07/27/2022 11:59 PM CDT Hospital Encounter Department of Radiology, [facility], in [place], [place] [address] [place] [phone] Raz Leon APRN, C.N.P., D.N.P. Cough Unspecified Type Discharge Disposition: Home or Self Care Social History Tobacco Use Types Packs/Day Years Used Date Smoking Tobacco: Never Assessed Sex and Gender Information Value Date Recorded Sex Assigned at Not on file Gender Identity Not on file Sexual Orientation Not on file documented as of this encounter Medications at Time of Discharge Medication Sig Dispensed Refills Start Date End Date amoxicillin-pot clavulanate (AUGMENTIN) 875-125 mg per tabletIndications:Sinus itis Take 1 tablet by mouth 2 (two) times a day for 5 days. 10 tablet 0 07/27/2022 10/10/2022 benzonatate (TESSALON) 200 mg capsuleIndications:Coug h Unspecified Type Take 1 capsule (200 mg total) by mouth 3 (three) times a day as needed for cough for up to 7 days. 20 capsule 0 07/27/2022 10/10/2022 Isibloom 0.15-0.03 mg per tablet 0 07/15/2022 10/10/2022 predniSONE (DELTASONE) 20 mg tabletIndications:Cough Unspecified Type Take 2 tablets (40 mg total) by mouth daily for 5 days. 10 tablet 0 07/27/2022 10/10/2022 documented as of this encounter Plan of Treatment Not on file documented as of this encounter Procedures Procedure Name Priority Date/Time Associated Diagnosis Comments DX CHEST AP OR PA AND LATERAL 2 VIEWS RAD - Routine (most inpatients and all outpatients) 07/27/2022 7:40 PM CDT Cough Unspecified Type documented in this encounter Results * DX Chest AP or PA and Lateral 2 Views (07/27/2022 7:40 PM CDT) Anatomical Region Laterality Modality Chest, Thoracic RST LOS, Tho racic ARZ LOS, Thoracic FLA LOS N/A Digital Radiography 07/27/2022 7:41 PM CDT Impressions 07/27/2022 7:42 PM CDT No acute findings. Narrative 07/27/2022 7:42 PM CDT EXAM: DX CHEST AP OR PA AND LATERAL 2 VIEWS COMPARISON: None FINDINGS: Heart size and pulmonary vascularity normal. Lungs clear. No pleural effusion or pneumothorax. No acute bony abnormality. Procedure Note Destiny Dey M.D. - 07/27/2022 EXAM: DX CHEST AP OR PA AND LATERAL 2 VIEWS COMPARISON: None FINDINGS: Heart size and pulmonary vascularity normal. Lungs clear. Nopleural effusion or pneumothorax. No acute bony abnormality. IMPRESSION: No acute findings. Raz Leon APRN, C.N.P., D.N.P. IMG D IAGNOSTIC IMAGING PROCEDURES documented in this encounter Visit Diagnoses Diagnosis Cough Unspecified Type documented in this encounter
--- OUTSIDE RECORDS SUMMARY | 2023-05-30 08:55 | XMS_ITS | Clinical Summary ---
Author Name Unknown Organization [facility] Address [address] [place] [address] Care Team Providers Care Dinker Name Role Phone Unavailable Primary Care Provider Unavailabl e Source Comments Patient records contain information from all sites at [facility]. For routine questions regarding patient records, call [phone] during business hours, M-F 8:00 AM - 5:00 PM Central Time. Record requests for emergency care only can be directed to [phone] at any time.[facility] Social History Tobacco Use Types Packs/Day Years Used Date Smoking Tobacco: Never Smokeless Tobacco: Never Nutrition Answer Date Recorded Nutrition: EVOO Fat Source Unknown 09/12 Nutrition: Servings of Fruits/Vegetables per Day Not on file 09/12/2022 Dental Answer Date Recorded Dental: Regular Dentist Unknown 09/13/19 Sex and Gender Information Value Date Recorded Sex Assigned at Not on file Gender Identity Not on file Sexual Orientation Not on file Last Filed Vital Signs Vital Sign Reading [...] - - Body Mass Index - - Plan of Treatment Health Maintenance Due Date Last Done Comments Cervical Cancer Screening 1993 HIV Screening 1993 Hepatitis C Screening 1993 HPV Vaccines (2 - 3-dose series) 02/01/2015 01/04/2015 COVID-19 Vaccine ( season) 2023 05/27/2021, 06/12/2020, 05/15/2020 Influenza Vaccine (#1) 2023 2, 10/19/2014, 04/12/2009, Additional history exists Depression Screening (Annual PHQ-2) 05/14/2023 DTaP,Tdap,and Td Vaccines (8 - Td or Tdap) 01/09/2026 01/10/2016, 10/19/2014, 12/07/2005, Additional history exists Hepatitis B Vaccines Completed 08/11/1994, 08/11/1994, 03/10/1994, Additional history exists Pneumococcal vaccine (0-64 years) Aged Out No longer eligible based on patient's age to complete this topic
--- OUTSIDE RECORDS SUMMARY | 2023-05-30 08:55 | XMS_ITS | Referral Summary ---
Author Name Unknown Organization [facility] Address [address] [place] [address] Care Team Providers Care Bilingual Case Manager Name Role Phone Unavailable Primary Care Provider Unavailabl e Source Comments Patient records contain information from all sites at [facility]. For routine questions regarding patient records, call [phone] during business hours, M-F 8:00 AM - 5:00 PM Central Time. Record requests for emergency care only can be directed to [phone] at any time.[facility] Social History Tobacco Use Types Packs/Day Years [...] Mass Index - - Plan of Treatment Not on file
--- OUTSIDE RECORDS SUMMARY | 2023-05-30 08:55 | XMS_ITS | Clinical Summary ---
Author Name Unknown Organization [facility] Address [place], [place] [address] Care Team Providers Care Corporate Librarian Name Role Phone Van Boyer MD Primary Care Provider [phone] Allergies No known active allergies Medications Medication Sig Dispensed Refills Start Date End Date Status norgestimate-ethiny l estradioL (ORTHO TRI-CYCLEN) 0.18/0.215/0.25 mg-35 mcg (28) tablet Take 1 tablet by mouth once daily. 0 10/19/2014 Active ketorolac tromethamine (TORADOL ORAL) Take 10 mg by mouth every 8 hours. For 5 days 0 Active ondansetron HCl (ZOFRAN ORAL) Take 4 mg by mouth every 6 hours. 0 Active HYDROcodone-acetami nophen (NORCO) 5-325 mg per tablet Take 1 Tablet by mouth every 4 hours if needed for Pain. Max acetaminophen dose: 4000 mg in 24 hrs. 0 Active sulfamethoxazole/tr imethoprim (BACTRIM ORAL) Take by mouth two times daily. 0 Active traMADoL (ULTRAM) 50 mg tabletIndications:L eft ureteral calculus Take 1 Tablet (50 mg) by mouth every 6 hours if needed for Pain. 15 Tablet 0 04/13/2022 Active Active Problems Problem Noted Date Diagnosed Date Left ureteral stone Immunizations Name Administration Dates Next Due COVID-19 vaccine (Moderna 100mcg/0.5mL) VISH VILLAFUERTE 05/27/2021,06/12/2020,05/15/2020 DTaP 10/04/1998, 4,03/10/1994,1993 Hepatitis A (Adult) 10/19/2014 Hepatitis B, Unspecified 08/11/1994,03/10/1994,0 1993 Hib Conjugate, Unspecified 05/12/1994,03/10/1994 Inactivated Polio Vaccine 10/04/1998,,03/10/1994,1993 Influenza, IIV4 10/19/2014 MMR 09/07/2011,11/16/1994 Meningococcal, Unspecified 09/07/2011 Tdap 10/19/2014,12/07/2005 Typhoid (injectable) 10/19/2014 Varicella Vaccine 09/07/2011,12/07/2005 Social History Tobacco Use Types Packs/Day Years Used Date Smoking Tobacco: Never Smokeless Tobacco: Never Alcohol Use Standard Drinks/Week Comments No 0 (1 standard drink = 0.6 oz pur e alcohol) Sex and Gender Information Value Date Recorded Sex Assigned at Not on file Gender Identity Not on file Sexual Orientation Not on file Obstetrics History Last Filed Vital Signs Vital Sign Reading Time Taken Comments Blood Pressure 105/72 04/13/2022 10:45 AM SUTURE POLISHER Pulse 70 04/13/2022 10:45 AM SUTURE POLISHER Temperature 36.4 ??C (97.5 ??F) 04/13/2022 10:[address] Respiratory Rate 18 04/13/2022 10:45 AM SUTURE POLISHER Oxygen Saturation 98% 04/13/2022 10:45 AM SUTURE POLISHER Inhaled Oxygen Concentration - - Weight 54.4 kg (120 lb) 04/13/2022 8:12 AM SUTURE POLISHER Height 144.8 cm (4' 9) 04/13/2022 8:12 AM SUTURE POLISHER Body Mass Index 25.97 04/13/2022 8:12 AM SUTURE POLISHER Plan of Treatment Health Maintenance Due Date Last Done Comments Depression screening for age 12+ 2005 HIV for age 15-65 2008 Hepatitis C screening for ag e 18-79 11/02/2011 BMI (ht and wt on same day) for age 18+ 02/16/2017 02/17/2016 COVID-19 vaccine series ( season) 2023 05/27/2021, 06/12/2020, 05/15/2020 Influenza for age 9-49 01/12/2023 10/19/2014 Pap test for age 21-65 07/24/2023 07/23/2020 Tetanus booster 10/19/2024 10/19/2014, 12/07/2005 Tdap Completed 10/19/2014, 12/07/2005 Pneumococcal series for age 6-64 Aged Out No longer eligible b ased on patient's age to complete this topic Medical Devices Implanted Type Area Bicycle Service Technician Device Identifier Shelf Expiration Date Model / Serial / Lot Stent Uret [id number] Contour - [id number] Implanted:Qty: 1 on 04/13/2022 by Hernan Pandya MD at [facility] Left: [facility]reter [facility] 11/02/2024 [id number] / / [id number] Advance Directives Latest Code Status on File Code Status Date Activated Date Inactivated Comments Full Code 04/13/2022 7:56 AM 04/13/2022 2:40 PM Question Answer Comments Code Status Discussion: Unable to Assess Preferences, Provider to review later Care Teams Corporate Librarian Relationship Specialty Start Date End Date Van Boyer MD PCP - General Family Practice 04/05/22
== END 2023-05-30 08:48 | disposition home or self-care (01) ==
PROVIDERS: PCP Family Medicine; Visit Provider Urology
DX: N20.1 Calculus of ureter (principal)
CPT/HCPCS: 76770

== ENCOUNTER 2023-09-14 13:49 | Outpatient (CLI) | payer OTHER, SELFPAY ==
--- OUTSIDE RECORDS SUMMARY | 2023-09-14 13:55 | XMS_ITS ---
Author Name Unknown Organization [facility] Address [address] [place] [address] Care Team Providers Care Electrical Superintendent Name Role Phone Unavailable Unavailable Unavailable Surgery Details Not on file Complications Check Surgery Details section. Procedure Estimated Blood Loss Check Surgery Details section. Procedure Findings Check Surgery Details section. Procedure Specimens Taken Check Surgery Details section.
--- OUTSIDE RECORDS SUMMARY | 2023-09-14 13:55 | XMS_ITS | Clinical Summary ---
Author Name Unknown Organization [facility] Address [address] [place] [address] Care Team Providers Care Fisheries Manager Name Role Phone Unavailable Primary Care Provider Unavailabl e Source Comments Patient records contain information from all sites at [facility]. For routine questions regarding patient records, call [phone] during business hours, M-F 8:00 AM - 5:00 PM Central Time. Record requests for emergency care only can be directed to [phone] at any time.[facility] Social History Tobacco Use Types Packs/Day Years [...] 05/27/2021, 06/12/2020, 05/15/2020 Influenza Vaccine (#1) 2023 , 10/19/2014, 04/12/2009 Depression Screening (Annual PHQ-2) 05/14/2023 DTaP,Tdap,and Td Vaccines (8 - Td or Tdap) 01/09/2026 01/10/2016, 10/19/2014, 12/07/2005, Additional history exists Hepatitis B Vaccines Completed 08/11/1994, 03/10/1994, 1993 Pneumococcal vaccine (0-64 years) Aged Out No longer eligible based on patient's age to complete this topic
--- OUTSIDE RECORDS SUMMARY | 2023-09-14 13:55 | XMS_ITS | Referral Summary ---
Author Name Unknown Organization [facility] Address [address] [place] [address] Care Team Providers Care Coil Maker Name Role Phone Unavailable Primary Care Provider Unavailabl e Source Comments Patient records contain information from all sites at [facility]. For routine questions regarding patient records, call [phone] during business hours, M-F 8:00 AM - 5:00 PM Central Time. Record requests for emergency care only can be directed to [phone] at any time.[facility] Social History Tobacco Use Types Packs/Day Years [...]
--- OUTSIDE RECORDS SUMMARY | 2023-09-14 13:55 | XMS_ITS | Clinical Summary ---
Author Name Unknown Organization [facility] Address [place], [place] [address] Care Team Providers Care Appliance Worker Name Role Phone Van Boyer MD Primary Care Provider [phone] Allergies No known active allergies Medications Medication Sig Dispensed Refills Start Date End Date Status norgestimate-ethiny l estradioL (ORTHO TRI-CYCLEN) 0.18/0.215/0.25 mg-35 mcg (28) tablet Take 1 tablet by mouth once daily. 0 10/19/2014 Active ketorolac tromethamine (TORADOL ORAL) Take 10 mg by mouth every 8 hours. For 5 days Active ondansetron HCl (ZOFRAN ORAL) Take 4 mg by mouth every 6 hours. Active HYDROcodone-acetami nophen (NORCO) 5-325 mg per tablet Take 1 Tablet by mouth every 4 hours if needed for Pain. Max acetaminophen dose: 4000 mg in 24 hrs. Active sulfamethoxazole/tr imethoprim (BACTRIM ORAL) Take by mouth two times daily. Active traMADoL (ULTRAM) 50 mg tabletIndications:L eft ureteral calculus Take 1 Tablet (50 mg) by mouth every 6 hours if needed for Pain. 15 Tablet 04/13/2022 Active Active Problems Problem Noted Date [...] Comments Blood Pressure 105/72 04/13/2022 10:45 AM JET MECHANIC Pulse 70 04/13/2022 10:45 AM JET MECHANIC Temperature 36.4 ??C (97.5 ??F) 04/13/2022 10:[address] Respiratory Rate 18 04/13/2022 10:45 AM JET MECHANIC Oxygen Saturation 98% 04/13/2022 10:45 AM JET MECHANIC Inhaled Oxygen Concentration - - Weight 54.4 kg (120 lb) 04/13/2022 8:12 AM JET MECHANIC Height 144.8 cm (4' 9) 04/13/2022 8:12 AM JET MECHANIC Body Mass Index 25.97 04/13/2022 8:12 AM JET MECHANIC Plan of Treatment Health Maintenance Due Date Last Done Comments Depression screening for age 12+ 2005 HIV for age 15-65 2008 Hepatitis C screening for ag e 18-79 11/02/2011 BMI (ht and wt on same day) for age 18+ 02/16/2017 02/17/2016 COVID-19 vaccine series ( season) 2023 05/27/2021, 06/12/2020, 05/15/2020 Pap test for age 21-65 07/24/2023 07/23/2020 Influenza for age 9-49 01/13/2024 10/19/2014 Tetanus booster 10/19/2024 10/19/2014, 12/07/2005 Tdap Completed 10/19/2014, 12/07/2005 Pneumococcal series for age 6-64 Aged Out No longer eligible b ased on patient's age to complete this topic Medical Devices Implanted Type Area Real Estate Internship Device Identifier Shelf Expiration Date Model / Serial / Lot Stent Uret [id number] Contour - [id number] Implanted:Qty: 1 on 04/13/2022 by Hernan Pandya MD at [facility] Left: Ureter [facility] 11/02/2024 [id number] / / [id number] Procedures Procedure Name Priority Date/Time Associated Diagnosis Comments AUTOMOTIVE SERVICE TECHNICIAN THIN PREP PAP SCREEN IMAGED Routine 07/23/2020 8:50 AM JET MECHANIC from Last 3 Months or Most Recently Relevant to Health Maintenance Results * AUTOMOTIVE SERVICE TECHNICIAN THIN PREP PAP SCREEN IMAGED (07/23/2020 8:50 AM JET MECHANIC) Case Report Gynecologic Cytology Report ? Case: [id number] ? Authorizing Provider: ??Van Boyer MD ? Collected: ? 07/23/2020 0850 ? Ordering Location: ? [facility] ?Received: ?07/26/2020 1417 ? First Screen: ?Soraya Flaherty ? Rescreen: ?Maryuri Harden ? Specimen: ?AUTOMOTIVE SERVICE TECHNICIAN ThinPrep Vial Screening, Cervical/Vaginal ? 08/05/2020 12:11 PM CDT [facility] INTERPRETATION/ RESULT NEGATIVE FOR INTRAEPITHELIAL LESION OR MALIGNANCY (NIL) (none) 08/05/2020 12:[address] [facility] IMEN ADEQUACY Satisfactory for evaluation Endocervical component present 08/05/2020 12:11 PM CDT [facility] HPV REQUEST HPV if ASCUS 08/05/2020 12:11 PM CDT [facility] Date of LMP 07/10/2020 08/05/2020 12:11 PM CDT [facility] Last Pap Date 08/05/2020 12:11 PM T [facility] Comment:2017 Last Pap Result NIL 12:11 PM CDT [facility] Additional Information Ectropihic and minimal bleeding 08/05/2020 12:11 PM CDT [facility] Comment: Interpreted at [facility], Central Laboratory - [address], [place] [address] Automated Review Successful 08/05/2020 12:11 PM CDT [facility] Comment:Specimen processed s uccessfully by automated janitorial supervisor device, ThinPrep Imaging System, [employer] Note The pap test is a screening technique, not a diagnostic procedure. It is used primarily to screen for squamous cancers and precursor lesions. Published studies have shown that it is subject to both false negative and false positive results. The pap test should not be used as the sole means to diagnose or exclude pre-malignant and malignant lesions. 08/05/2020 12:11 PM CDT [facility]AL LAB[facility]ATORY Other (Cervical/Vagina l) 07/23/2020 8:50 AM JET MECHANIC 07/26/2020 2:17 PM CDT Van Boyer MD PATHOLOGY/CYTOLOGY [facility]AL LAB[facility]ATORY [address] [place] [address], from Last 3 Months or Most Recently Relevant to Health Maintenance Advance Directives * Full Code (Latest Code Status on File) Date Activated Date Inactivated Comments 04/13/2022 7:56 AM 04/13/2022 2:40 PM Question Answer Comments Code Status Discussion: Unable to Assess Preferences, Provider to review later Care Teams Appliance Worker Relationship Specialty Start Date End Date Van Boyer MD PCP - General Family Practice 04/05/22
--- NOTE | 2023-09-14 14:00 | US_ITS ---
Patient: JERAMIE Pavon [facility] Facility:?[facility] Patient ID:?[id number] Site Patient ID:?[id number] Site :?1995 Study:?US-OB Pelvis OB TV-09/14/2023 2:42:20 PM Ordering Physician:?BENY CHRISTIANSEN CNP Final Report: INDICATION: First trimester scan, establish dates. COMPARISON: None. TECHNIQUE: Real-time gonzalez-scale imaging of the pelvis was performed. FINDINGS: Sonographic imaging demonstrates a single living intrauterine gestation. The embryo demonstrates a regular cardiac rate measuring 178 beats per minute. The embryo`s crown-rump length measurement of 2.1 cm corresponds to a gestational age of 8 weeks 5 days with a sonographic due date of 04/20/2024. There is a normal-appearing yolk sac. There are no gross abnormalities noted within the embryo at this early state of development. The gestational sac has a normal appearance. There is no evidence of a perigestational hemorrhage. The amount of fluid within the sac appears appropriate for gestational age. The cervix is closed. The myometrium appears normal. The ovaries are of normal size. Simple right ovarian cyst is present measuring 17 x 15 x 21 millimeters. There are no suspicious fluid collections noted in the cul-de-sac. IMPRESSION: Normal first trimester OB ultrasound exam. Gestational age calculated at 8 weeks 5 days with a sonographic due date of 04/20/2024. Dictated by José Miguel Willams MD @ 09/14/2023 2:55:20 PM Signed by:?José Miguel Willams MD @09/14/2023 2:55:20 PM (Electronic Signature)
== END 2023-09-14 13:50 | disposition home or self-care (01) ==
LOC: US 13:54
PROVIDERS: PCP Family Medicine; Visit Provider Registered Nurse
DX: Z34.91 Encounter for supervision of normal pregnancy, unspecified, first trimester (principal); Z3A.08 8 weeks gestation of pregnancy
CPT/HCPCS: 76817; 86592; 86703; 86704; 86706; 86762; 86787; 86803; 86850; 86900; 86901; 87086; 87340

== ENCOUNTER 2023-10-12 14:19 | Outpatient (CLI) | payer OTHER, SELFPAY | END 2023-10-12 14:20 | disposition home or self-care (01) | LOC: NFLDREF 14:20 | PROVIDERS: PCP Family Medicine; Visit Provider Obstetrics & Gynecology | DX: Z34.01 Encounter for supervision of normal first pregnancy, first trimester (principal) | CPT/HCPCS: 80306 ==

== ENCOUNTER 2023-12-07 07:02 | Outpatient (CLI) | payer OTHER, SELFPAY ==
--- OUTSIDE RECORDS SUMMARY | 2023-12-07 07:04 | XMS_ITS | Clinical Summary ---
Author Organization [facility] Address [place], [place] [address] Care Team Providers Care Developer Evangelist Name Role Phone Van Boyer MD Primary Care Provider [phone] Allergies No known active allergies Medications Medication [...] Comments Blood Pressure 105/72 04/13/2022 10:45 AM CHILD CARE LEAD TEACHER Pulse 70 04/13/2022 10:45 AM CHILD CARE LEAD TEACHER Temperature 36.4 ??C (97.5 ??F) 04/13/2022 10:[address] Respiratory Rate 18 04/13/2022 10:45 AM CHILD CARE LEAD TEACHER Oxygen Saturation 98% 04/13/2022 10:45 AM CHILD CARE LEAD TEACHER Inhaled Oxygen Concentration - - Weight 54.4 kg (120 lb) 04/13/2022 8:12 AM CHILD CARE LEAD TEACHER Height 144.8 cm (4' 9) 04/13/2022 8:12 AM CHILD CARE LEAD TEACHER Body Mass Index 25.97 04/13/2022 8:12 AM CHILD CARE LEAD TEACHER Plan of Treatment Health Maintenance Due Date [...] this topic Medical Devices Implanted Type Area Academy Director Device Identifier Shelf Expiration Date Model / Serial / Lot Stent Uret [id number] Contour - [id number] Implanted:Qty: 1 on 04/13/2022 by Hernan Pandya MD at [facility] Left: Ureter [facility] 11/02/2024 [id number] / / [id number] Procedures Procedure Name Priority Date/Time Associated Diagnosis Comments SAP TRAINER THIN PREP PAP SCREEN IMAGED Routine 07/23/2020 8:50 AM CHILD CARE LEAD TEACHER from Last 3 Months or Most Recently Relevant to Health Maintenance Results * SAP TRAINER THIN PREP PAP SCREEN IMAGED (07/23/2020 8:50 AM CHILD CARE LEAD TEACHER) Case Report Gynecologic Cytology Report ? Case: [id number] ? Authorizing Provider: ??Van Boyer MD ? Collected: ? 07/23/2020 0850 ? Ordering Location: ? [facility] ?Received: ?07/26/2020 1417 ? First Screen: ?Soraya Flaherty ? Rescreen: ?Maryuri Harden ? Specimen: ?SAP TRAINER ThinPrep Vial Screening, Cervical/Vaginal ? 08/05/2020 12:11 PM CDT [facility] INTERPRETATION/ RESULT NEGATIVE FOR INTRAEPITHELIAL LESION OR MALIGNANCY (NIL) (none) 08/05/2020 12:11 PM [facility] IMEN ADEQUACY Satisfactory for evaluation Endocervical component present 08/05/2020 12:11 PM [facility]T [facility] HPV REQUEST HPV if ASCUS 08/05/2020 12:11 PM CDT [facility] Date of LMP 07/10/2020 08/05/2020 12:11 PM CDT [facility] Last Pap Date 08/05/2020 12:11 PM T [facility] Comment:2017 Last Pap Result NIL 12:11 PM CDT [facility] Additional Information Ectropihic and minimal bleeding 08/05/2020 12:11 PM CDT [facility] Comment: Interpreted at [facility], Central Laboratory - [address], [place] [address] Automated Review Successful 08/05/2020 12:11 PM CDT [facility] Comment:Specimen processed s uccessfully by automated online marketer device, ThinPrep Imaging System, [employer] Note The pap test is a [...] and malignant lesions. 08/05/2020 12:11 PM CDT [facility]ATORY Other (Cervical/Vagina l) 07/23/2020 8:50 AM CHILD CARE LEAD TEACHER 07/26/2020 2:17 PM CDT Van Boyer MD PATHOLOGY/CYTOLOGY [facility]AL LABORATORY [address] [employer] [place] [address], from Last 3 Months or Most Recently Relevant to Health Maintenance Advance Directives * Full Code (Latest Code Status on File) Date Activated Date Inactivated Comments 04/13/2022 7:56 AM 04/13/2022 2:40 PM Question Answer Comments Code Status Discussion: Unable to Assess Preferences, Provider to review later Care Teams Developer Evangelist Relationship Specialty Start Date End Date Van Boyer MD PCP - General Family Practice 04/05/22
--- OUTSIDE RECORDS SUMMARY | 2023-12-07 07:04 | XMS_ITS | Referral Summary ---
Author Organization [facility] Address [address] [place] [address] Care Team Providers Care Pattern Room Attendant Name Role Phone Unavailable Primary Care Provider Unavailabl e Source Comments Patient records contain information from all sites at [facility]. For routine questions regarding patient records, call [phone] during business hours, M-F 8:00 AM - 5:00 PM Central Time. Record requests for emergency care only can be directed to [phone] at any time.[facility] Social History Tobacco Use Types Packs/Day [...]
--- OUTSIDE RECORDS SUMMARY | 2023-12-07 07:04 | XMS_ITS | Clinical Summary ---
Author Organization [facility] Address [address] [place] [address] Care Team Providers Care Operations Vice President Name Role Phone Unavailable Primary Care Provider Unavailabl e Source Comments Patient records contain information from all sites at [facility]. For routine questions regarding patient records, call [phone] during business hours, M-F 8:00 AM - 5:00 PM Central Time. Record requests for emergency care only can be directed to [phone] at any time.[facility] Social History Tobacco Use Types Packs/Day Years [...] Vaccine ( season) 2023 05/27/2021, 06/12/2020, 05/15/2020 Depression Screening (Annual PHQ-2) 05/14/2023 Influenza Vaccine (#1) 2024 , 10/19/2014, 04/12/2009 DTaP,Tdap,and Td Vaccines (8 - Td or Tdap) 01/09/2026 01/10/2016, 10/19/2014, 12/07/2005, Additional history exists Hepatitis B Vaccines Completed 08/11/1994, 03/10/1994, 1993 Pneumococcal vaccine (0-64 years) Aged Out No longer eligible based on patient's age to complete this topic
--- OUTSIDE RECORDS SUMMARY | 2023-12-07 07:04 | XMS_ITS ---
Author Organization [facility] Address [address] [place] [address] Care Team Providers Care Legal Associate Name Role Phone Unavailable Unavailable Unavailable Surgery Details Not on file Complications Check Surgery Details section. Procedure Estimated Blood Loss Check Surgery Details section. Procedure Findings Check Surgery Details section. Procedure Specimens Taken Check Surgery Details section.
--- NOTE | 2023-12-07 07:15 | CRLHL7_ITS ---
For Patients: As a result of the Century Cures Act, medical imaging exams and procedure reports are released immediately into your electronic medical record. You may view this report before your referring provider. If you have questions, please contact your health care provider. INDICATION: Evaluate anatomy. COMPARISON: 09/14/2023 TECHNIQUE: Real time gonzalez scale imaging of the fetus was performed as well as color Doppler analysis of the umbilical vessels. FINDINGS: Sonographic imaging demonstrates a single living intrauterine gestation. Fetus demonstrates a regular cardiac rate of 141 beats per minute. Fetus has a variable position. The placenta lies anteriorly without evidence of placenta previa. Placental edge 5.6 cm from the internal cervical os. Amniotic fluid volume appears normal. Single deepest vertical pocket: 4.8 cm. The cervix is closed and measures 3.8 cm in length. The composite ultrasound gestational age is calculated at 20 weeks 4 days with an estimated sonographic due date of 04/21/2024. The estimated weight is 355 grams which lies at the 31st %. The following biometric measurements were obtained: Biparietal diameter: 4.9 cm/20 weeks 6 days 55th% Head circumference: 17.7 cm/20 weeks 1 day 20th% Abdominal circumference: 15.4 cm/20 weeks 4 days 38th% Femur length: 3.3 cm/20 weeks 2 days 29th% The HC/AC ratio measures: 1.16 range (1.07-1.25) On anatomic survey, there is a normal appearance of the cerebral ventricles, cavum septi pellucidi, cisterna magna and cerebellum. The nose, lips, and facial profile appear normal. The cervical, thoracic and lumbar spine are well visualized and appear normal. There is a normal four-chamber heart view and the left and right ventricular outflow tracts appear normal. The diaphragm and stomach appear normal. The kidneys and bladder also appear normal. There is a normal three-vessel cord and cord insertion site. The four extremities appear normal. IMPRESSION: Normal OB ultrasound exam with concordance of clinical and sonographic dating. No intrinsic abnormalities noted on anatomic survey. Dictated by José Miguel Willams MD @ 12/07/2023 11:00:40 AM (Electronically Signed)
== END 2023-12-07 07:03 | disposition home or self-care (01) ==
LOC: US 07:03
PROVIDERS: PCP Family Medicine; Visit Provider Obstetrics & Gynecology
DX: Z34.92 Encounter for supervision of normal pregnancy, unspecified, second trimester (principal); Z3A.20 20 weeks gestation of pregnancy
CPT/HCPCS: 76805

== ENCOUNTER 2023-12-31 08:50 | Outpatient (CLI) | payer OTHER, SELFPAY ==
--- OUTSIDE RECORDS SUMMARY | 2023-12-31 10:46 | XMS_ITS | Referral Summary ---
Author Organization [facility] Address [address] [place] [address] Care Team Providers Care Tectonophysicist Name Role Phone Unavailable Primary Care Provider Unavailabl e Source Comments Patient records contain information from all sites at [facility]. For routine questions regarding patient records, call [phone] during business hours, M-F 8:00 AM - 5:00 PM Central Time. Record requests for emergency care only can be directed to [phone] at any time.[facility] Social History Tobacco Use Types Packs/Day [...]
--- OUTSIDE RECORDS SUMMARY | 2023-12-31 10:46 | XMS_ITS | Clinical Summary ---
Author Organization [facility] Address [place], [place] [address] Care Team Providers Care District Manager In Training Name Role Phone Van Boyer MD Primary Care Provider [phone] Allergies No known active allergies Medications Medication [...] Comments Blood Pressure 105/72 04/13/2022 10:45 AM MANAGER PEST Pulse 70 04/13/2022 10:45 AM MANAGER PEST Temperature 36.4 ??C (97.5 ??F) 04/13/2022 10:[address] Respiratory Rate 18 04/13/2022 10:45 AM MANAGER PEST Oxygen Saturation 98% 04/13/2022 10:45 AM MANAGER PEST Inhaled Oxygen Concentration - - Weight 54.4 kg (120 lb) 04/13/2022 8:12 AM MANAGER PEST Height 144.8 cm (4' 9) 04/13/2022 8:12 AM MANAGER PEST Body Mass Index 25.97 04/13/2022 8:12 AM MANAGER PEST Plan of Treatment Health Maintenance Due Date [...] this topic Medical Devices Implanted Type Area Outpatient Physical Therapist Device Identifier Shelf Expiration Date Model / Serial / Lot Stent Uret [id number] Contour - [id number] Implanted:Qty: 1 on 04/13/2022 by Hernan Pandya MD at [facility] Left: Ureter [facility] 11/02/2024 [id number] / / [id number] Procedures Procedure Name Priority Date/Time Associated Diagnosis Comments POWER GENERATION PLANT OPERATOR THIN PREP PAP SCREEN IMAGED Routine 07/23/2020 8:50 AM MANAGER PEST from Last 3 Months or Most Recently Relevant to Health Maintenance Results * POWER GENERATION PLANT OPERATOR THIN PREP PAP SCREEN IMAGED (07/23/2020 8:50 AM MANAGER PEST) Case Report Gynecologic Cytology Report ? Case: [id number] ? Authorizing Provider: ??Van Boyer MD ? Collected: ? 07/23/2020 0850 ? Ordering Location: ? [facility] ?Received: ?07/26/2020 1417 ? First Screen: ?Soraya Flaherty ? Rescreen: ?Maryuri Harden ? Specimen: ?POWER GENERATION PLANT OPERATOR ThinPrep Vial Screening, Cervical/Vaginal ? 08/05/2020 12:11 PM CDT [facility] INTERPRETATION/ RESULT NEGATIVE FOR INTRAEPITHELIAL LESION OR MALIGNANCY (NIL) (none) 08/05/2020 12:11 PM [facility] IMEN ADEQUACY Satisfactory for evaluation Endocervical component present 08/05/2020 12:11 PM [facility] HPV REQUEST HPV if ASCUS 08/05/2020 12:11 PM CDT [facility] Date of LMP 07/10/2020 08/05/2020 12:11 PM CDT [facility] Last Pap Date 08/05/2020 12:11 PM T [facility] Comment:2017 Last Pap Result NIL 12:11 PM CDT [facility] Additional Information Ectropihic and minimal bleeding 08/05/2020 12:11 PM CDT [facility] Comment: Interpreted at [facility], Central Laboratory - [address], [place] [address] Automated Review Successful 08/05/2020 12:11 PM CDT [facility] Comment:Specimen processed s uccessfully by automated supervisor boiler repair device, ThinPrep Imaging System, [employer] Note The pap test is a [...] and malignant lesions. 08/05/2020 12:11 PM CDT [facility] [employer] LABORATORY-C ENTRAL LABORATORY Other (Cervical/Vagina l) 07/23/2020 8:50 AM MANAGER PEST 07/26/2020 2:17 PM CDT Van Boyer MD PATHOLOGY/CYTOLOGY [facility]-CENTRAL LABORATORY [address] [employer] [place] [address], from Last 3 Months or Most Recently Relevant to Health Maintenance Advance Directives * Full Code (Latest Code Status on File) Date Activated Date Inactivated Comments 04/13/2022 7:56 AM 04/13/2022 2:40 PM Question Answer Comments Code Status Discussion: Unable to Assess Preferences, Provider to review later Care Teams District Manager In Training Relationship Specialty Start Date End Date Van Boyer MD PCP - General Family Practice 04/05/22
--- OUTSIDE RECORDS SUMMARY | 2023-12-31 10:46 | XMS_ITS ---
Author Organization [facility] Address [address] [place] [address] Care Team Providers Care Geophysical Drafter Name Role Phone Unavailable Unavailable Unavailable Surgery Details Not on file Complications Check Surgery Details section. Procedure Estimated Blood Loss Check Surgery Details section. Procedure Findings Check Surgery Details section. Procedure Specimens Taken Check Surgery Details section.
--- OUTSIDE RECORDS SUMMARY | 2023-12-31 10:46 | XMS_ITS | Clinical Summary ---
Author Organization [facility] Address [address] [place] [address] Care Team Providers Care Credit Control Manager Name Role Phone Unavailable Primary Care Provider Unavailabl e Source Comments Patient records contain information from all sites at [facility]. For routine questions regarding patient records, call [phone] during business hours, M-F 8:00 AM - 5:00 PM Central Time. Record requests for emergency care only can be directed to [phone] at any time.[facility] Social History Tobacco Use Types Packs/Day [...]
== END 2023-12-31 08:51 | disposition home or self-care (01) ==
LOC: NFLDREF 10:44
PROVIDERS: PCP Family Medicine; Referring Provider Family Medicine; Visit Provider Obstetrics & Gynecology
DX: R35.0 Frequency of micturition (principal)
CPT/HCPCS: 87086

== ENCOUNTER 2024-01-30 08:44 | Outpatient (CLI) | payer OTHER, SELFPAY ==
--- OUTSIDE RECORDS SUMMARY | 2024-02-01 08:56 | XMS_ITS ---
Author Organization [facility] Address [address] [place] [address] Care Team Providers Care Reverberatory Skimmer Name Role Phone Unavailable Unavailable Unavailable Surgery Details Not on file Complications Check Surgery Details section. Procedure Estimated Blood Loss Check Surgery Details section. Procedure Findings Check Surgery Details section. Procedure Specimens Taken Check Surgery Details section.
--- OUTSIDE RECORDS SUMMARY | 2024-02-01 08:56 | XMS_ITS | Referral Summary ---
Author Organization [facility] Address [address] [place] [address] Care Team Providers Care Product Design Engineer Name Role Phone Unavailable Primary Care Provider Unavailabl e Source Comments Patient records contain information from all sites at [facility]. For routine questions regarding patient records, call [phone] during business hours, M-F 8:00 AM - 5:00 PM Central Time. Record requests for emergency care only can be directed to [phone] at any time.[facility] [...]
--- OUTSIDE RECORDS SUMMARY | 2024-02-01 08:56 | XMS_ITS | Clinical Summary ---
Author Organization [facility] Address [place], [place] [address] Care Team Providers Care Orthopaedic Doctor Name Role Phone Van Boyer MD Primary Care Provider [phone] Allergies No known active allergies Medications Medication [...] Comments Blood Pressure 105/72 04/13/2022 10:45 AM BUSINESS INTELLIGENCE DEVELOPER Pulse 70 04/13/2022 10:45 AM BUSINESS INTELLIGENCE DEVELOPER Temperature 36.4 ??C (97.5 ??F) 04/13/2022 10:[address] Respiratory Rate 18 04/13/2022 10:45 AM BUSINESS INTELLIGENCE DEVELOPER Oxygen Saturation 98% 04/13/2022 10:45 AM BUSINESS INTELLIGENCE DEVELOPER Inhaled Oxygen Concentration - - Weight 54.4 kg (120 lb) 04/13/2022 8:12 AM BUSINESS INTELLIGENCE DEVELOPER Height 144.8 cm (4' 9) 04/13/2022 8:12 AM BUSINESS INTELLIGENCE DEVELOPER Body Mass Index 25.97 04/13/2022 8:12 AM BUSINESS INTELLIGENCE DEVELOPER Plan of Treatment Health Maintenance Due Date Last Done Comments Depression screening for age 12+ 2005 HIV for age 15-65 2008 Hepatitis C screening for ag e 18-79 11/02/2011 BMI (ht and wt on same day) for age 18+ 02/16/2017 02/17/2016 Pap test for age 21-65 07/24/2023 07/23/2020 COVID-19 vaccine series ( season) 2024 05/27/2021, 06/12/2020, 05/15/2020 Influenza for age 9-49 01/13/2024 10/19/2014 Tetanus booster 10/19/2024 10/19/2014, 12/07/2005 Tdap Completed 10/19/2014, 12/07/2005 Pneumococcal series for age 6-64 Aged Out No longer eligible b ased on patient's age to complete this topic Medical Devices Implanted Type Area Graphic Production Artist Device Identifier Shelf Expiration Date Model / Serial / Lot Stent Uret [id number] Contour - [id number] Implanted:Qty: 1 on 04/13/2022 by Hernan Pandya MD at [facility] Left: Ureter [facility] U[facility] 11/02/2024 [id number] / / [id number] Procedures Procedure Name Priority Date/Time Associated Diagnosis Comments GROUP SUPERVISOR YARD THIN PREP PAP SCREEN IMAGED Routine 07/23/2020 8:50 AM BUSINESS INTELLIGENCE DEVELOPER from Last 3 Months or Most Recently Relevant to Health Maintenance Results * GROUP SUPERVISOR YARD THIN PREP PAP SCREEN IMAGED (07/23/2020 8:50 AM BUSINESS INTELLIGENCE DEVELOPER) Case Report Gynecologic Cytology Report ? Case: [id number] ? Authorizing Provider: ??Van Boyer MD ? Collected: ? 07/23/2020 0850 ? Ordering Location: ? [facility] ?Received: ?07/26/2020 1417 ? First Screen: ?Soraya Flaherty ? Rescreen: ?Maryuri Harden ? Specimen: ?GROUP SUPERVISOR YARD ThinPrep Vial Screening, Cervical/Vaginal ? 08/05/2020 12:11 PM CDT [facility] INTERPRETATION/ RESULT NEGATIVE FOR INTRAEPITHELIAL LESION OR MALIGNANCY (NIL) (none) 08/05/2020 12:11 PM [facility] IMEN ADEQUACY Satisfactory for evaluation Endocervical component present 08/05/2020 12:11 PM CDT [facility] HPV REQUEST HPV if ASCUS 08/05/2020 12:11 PM CDT [facility] Date of LMP 07/10/2020 08/05/2020 12:11 PM CDT [facility] Last Pap Date 08/05/2020 12:11 PM T [facility] Comment:2017 Last Pap Result NIL 12:11 PM CDT [facility] Additional Information Ectropihic and minimal bleeding 08/05/2020 12:11 PM CDT [facility] Comment: Interpreted at [facility], Central Laboratory - [address], [place] [address] Automated Review Successful 08/05/2020 12:11 PM CDT [facility] Comment:Specimen processed s uccessfully by automated business controller device, ThinPrep Imaging System, [employer] Note The pap test is a [...] and malignant lesions. 08/05/2020 12:11 PM CDT [facility] ENTRAL LABORATORY Other (Cervical/Vagina l) 07/23/2020 8:50 AM BUSINESS INTELLIGENCE DEVELOPER 07/26/2020 2:17 PM CDT Van Boyer MD PATHOLOGY/CYTOLOGY [facility]-CENTRAL LABORATORY [address] [place] [address], from Last 3 Months or Most Recently Relevant to Health Maintenance Advance Directives * Full Code (Latest Code Status on File) Date Activated Date Inactivated Comments 04/13/2022 7:56 AM 04/13/2022 2:40 PM Question Answer Comments Code Status Discussion: Unable to Assess Preferences, Provider to review later Care Teams Orthopaedic Doctor Relationship Specialty Start Date End Date Van Boyer MD PCP - General Family Practice 04/05/22
--- OUTSIDE RECORDS SUMMARY | 2024-02-01 08:56 | XMS_ITS | Clinical Summary ---
Author Organization [facility] Address [address] [place] [address] Care Team Providers Care Alignment Specialist Name Role Phone Unavailable Primary Care Provider Unavailabl e Source Comments Patient records contain information from all sites at [facility]. For routine questions regarding patient records, call [phone] during business hours, M-F 8:00 AM - 5:00 PM Central Time. Record requests for emergency care only can be directed to [phone] at any time.[facility] Social History Tobacco Use Types [...] Vaccines (2 - 3-dose series) 02/01/2015 01/04/2015 Depression Screening (Annual PHQ-2) 05/14/2023 COVID-19 Vaccine ( season) 2024 05/27/2021, 06/12/2020, 05/15/2020 Influenza Vaccine (#1) 2024 , 10/19/2014, 04/12/2009 DTaP,Tdap,and Td Vaccines (8 - Td or Tdap) 01/09/2026 01/10/2016, 10/19/2014, 12/07/2005, Additional history exists Hepatitis B Vaccines Completed 08/11/1994, 03/10/1994, 1993 Pneumococcal vaccine (0-64 years) Aged Out No longer eligible based on patient's age to complete this topic
== END 2024-01-30 08:45 | disposition home or self-care (01) ==
LOC: NFLDREF 02-01 08:55
PROVIDERS: PCP Family Medicine; Referring Provider Family Medicine; Visit Provider Obstetrics & Gynecology
DX: Z34.03 Encounter for supervision of normal first pregnancy, third trimester (principal)
CPT/HCPCS: 86592

== ENCOUNTER 2024-03-11 10:28 | Outpatient (CLI) | payer OTHER, SELFPAY ==
--- OUTSIDE RECORDS SUMMARY | 2024-03-12 12:01 | XMS_ITS | Clinical Summary ---
Author Organization [facility] Address [place], [place] [address] Care Team Providers Care Stain Maker Name Role Phone Van Boyer MD Primary Care Provider [phone] Allergies No known active allergies Medications Medication [...] Comments Blood Pressure 105/72 04/13/2022 10:45 AM CHAIN MAKER Pulse 70 04/13/2022 10:45 AM CHAIN MAKER Temperature 36.4 ??C (97.5 ??F) 04/13/2022 10:[address] Respiratory Rate 18 04/13/2022 10:45 AM CHAIN MAKER Oxygen Saturation 98% 04/13/2022 10:45 AM CHAIN MAKER Inhaled Oxygen Concentration - - Weight 54.4 kg (120 lb) 04/13/2022 8:12 AM CHAIN MAKER Height 144.8 cm (4' 9) 04/13/2022 8:12 AM CHAIN MAKER Body Mass Index 25.97 04/13/2022 8:12 AM CHAIN MAKER Plan of Treatment Health Maintenance Due Date [...] this topic Medical Devices Implanted Type Area Manager Culture Device Identifier Shelf Expiration Date Model / Serial / Lot Stent Uret [id number] Contour - [id number] Implanted:Qty: 1 on 04/13/2022 by Hernan Pandya MD at [facility] Left: Ureter [facility] Urology 11/02/2024 [id number] / / [id number] Procedures Procedure Name Priority Date/Time Associated Diagnosis Comments REGIONAL SALES CONSULTANT THIN PREP PAP SCREEN IMAGED Routine 07/23/2020 8:50 AM CHAIN MAKER from Last 3 Months or Most Recently Relevant to Health Maintenance Results * REGIONAL SALES CONSULTANT THIN PREP PAP SCREEN IMAGED (07/23/2020 8:50 AM CHAIN MAKER) Case Report Gynecologic Cytology Report ? Case: [id number] ? Authorizing Provider: ??Van Boyer MD ? Collected: ? 07/23/2020 0850 ? Ordering Location: ? [facility] ?Received: ?07/26/2020 1417 ? First Screen: ?Soraya Flaherty ? Rescreen: ?Maryuri Harden ? Specimen: ?REGIONAL SALES CONSULTANT ThinPrep Vial Screening, Cervical/Vaginal ? 08/05/2020 12:11 PM CDT [facility] INTERPRETATION/ RESULT NEGATIVE FOR INTRAEPITHELIAL LESION OR MALIGNANCY (NIL) (none) 08/05/2020 12:11 PM [facility] IMEN ADEQUACY Satisfactory for evaluation Endocervical component present 08/05/2020 12:11 PM CD[facility] HPV REQUEST HPV if ASCUS 08/05/2020 12:11 PM CDT [facility] Date of LMP 07/10/2020 08/05/2020 12:11 PM CDT [facility] Last Pap Date 08/05/2020 12:11 PM T [facility] Comment:2017 Last Pap Result NIL 12:11 PM CDT [facility] Additional Information Ectropihic and minimal bleeding 08/05/2020 12:11 PM CDT [facility] Comment: Interpreted at [facility], Central Laboratory - [address], [place] [address] Automated Review Successful 08/05/2020 12:11 PM CDT [facility] Comment:Specimen processed s uccessfully by automated charge attendant device, ThinPrep Imaging System, [employer] Note The pap test is a [...] lesions. 08/05/2020 12:11 PM CDT [facility]-C ENTRAL LABORATORY Other (Cervical/Vagina l) 07/23/2020 8:50 AM CHAIN MAKER 07/26/2020 2:17 PM CDT Van Boyer MD PATHOLOGY/CYTOLOGY [facility]-CENTRAL LABORATORY [address] [place] [address], from Last 3 Months or Most Recently Relevant to Health Maintenance Advance Directives * Full Code (Latest Code Status on File) Date Activated Date Inactivated Comments 04/13/2022 7:56 AM 04/13/2022 2:40 PM Question Answer Comments Code Status Discussion: Unable to Assess Preferences, Provider to review later Care Teams Stain Maker Relationship Specialty Start Date End Date Van Boyer MD PCP - General Family Practice 04/05/22
--- OUTSIDE RECORDS SUMMARY | 2024-03-12 12:01 | XMS_ITS | Clinical Summary ---
Author Organization [facility] Address [address] [place] [address] Care Team Providers Care Supervisor Boiler Repair Name Role Phone Unavailable Primary Care Provider Unavailabl e Source Comments Patient records contain information from all sites at [facility]. For routine questions regarding patient records, call [phone] during business hours, M-F 8:00 AM - 5:00 PM Central Time. Record requests for emergency care only can be directed to [phone] at any time.[facility] Social History Tobacco Use Types Packs/Day Years Used Date Smoking Tobacco: Never Smokeless Tobacco: Never Nutrition Answer Date Recorded Nutrition: EVOO Fat Source Unknown 09/12 Nutrition: Servings of Fruits/Vegetables per Day Not on file 09/12/2022 Dental Answer Date Recorded Dental: Regular Dentist Unknown 09/13/19 23 Comments Unknown Sex and Gender Information Value Date Recorded Sex Assigned at Not on file Legal Sex Female 9:30 AM CDT Gender Identity Not on file Sexual Orientation [...] Health Maintenance Due Date Last Done Comments HIV Screening 1993 Hepatitis C Screening 1993 HPV Vaccines (2 - 3-dose series) 02/01/2015 01/04/2015 Depression Screening (Annual PHQ-2) 05/14/2023 Cervical/Vaginal Cancer Screening 07/24/2023 07/23/2020 COVID-19 Vaccine (2023- season) 2024 05/27/2021, 06/12/2020, 05/15/2020 Influenza Vaccine (#1) 2024 , 10/19/2014, 06/17/2009, Additional history exists DTaP,Tdap,and Td Vaccines (8 - Td or Tdap) 01/09/2026 01/10/2016, 10/19/2014, 12/07/2005, Additional history exists Hepatitis B Vaccines Completed 08/11/1994, 03/10/1994, 1993 IPV Vaccines Completed 10/04/1998, 09/12, 05/12/1994, Additional history exists Pneumococcal vaccine (0-64 years) Aged Out No longer eligible based on patient's age to complete this topic Insurance [facility]
--- OUTSIDE RECORDS SUMMARY | 2024-03-12 12:01 | XMS_ITS ---
Author Organization [facility] Address [address] [place] [address] Care Team Providers Care Fruit Cutter Name Role Phone Unavailable Unavailable Unavailable Surgery Details Not on file Complications Check Surgery Details section. Procedure Estimated Blood Loss Check Surgery Details section. Procedure Findings Check Surgery Details section. Procedure Specimens Taken Check Surgery Details section.
--- OUTSIDE RECORDS SUMMARY | 2024-03-12 12:01 | XMS_ITS | Referral Summary ---
Author Organization [facility] Address [address] [place] [address] Care Team Providers Care Consulting Marine Engineer Name Role Phone Unavailable Primary Care Provider Unavailabl e Source Comments Patient records contain information from all sites at [facility]. For routine questions regarding patient records, call [phone] during business hours, M-F 8:00 AM - 5:00 PM Central Time. Record requests for emergency care only can be directed to [phone] at any time.[facility] Social History Tobacco Use Types [...] - Plan of Treatment Not on file Insurance [facility]
== END 2024-03-11 10:29 | disposition home or self-care (01) ==
LOC: NFLDREF 03-12 11:59
PROVIDERS: Visit Provider Obstetrics & Gynecology
DX: Z34.93 Encounter for supervision of normal pregnancy, unspecified, third trimester (principal); Z3A.34 34 weeks gestation of pregnancy
CPT/HCPCS: 82728

== ENCOUNTER 2024-03-26 15:37 | Outpatient (CLI) | payer OTHER, SELFPAY ==
--- OUTSIDE RECORDS SUMMARY | 2024-03-26 15:39 | XMS_ITS | Clinical Summary ---
Author Organization [facility] Address [address] [place] [address] Care Team Providers Care Cook Barbecue Name Role Phone Unavailable Primary Care Provider Unavailabl e Source Comments Patient records contain information from all sites at [facility]. For routine questions regarding patient records, call [phone] during business hours, M-F 8:00 AM - 5:00 PM Central Time. Record requests for emergency care only can be directed to [phone] at any time.[facility] Social History Tobacco Use Types Packs/Day Years [...] patient's age to complete this topic Insurance [facility]
--- OUTSIDE RECORDS SUMMARY | 2024-03-26 15:39 | XMS_ITS ---
Author Organization [facility] Address [address] [place] [address] Care Team Providers Care Hall Supervisor Name Role Phone Unavailable Unavailable Unavailable Surgery Details Not on file Complications Check Surgery Details section. Procedure Estimated Blood Loss Check Surgery Details section. Procedure Findings Check Surgery Details section. Procedure Specimens Taken Check Surgery Details section.
--- OUTSIDE RECORDS SUMMARY | 2024-03-26 15:39 | XMS_ITS | Referral Summary ---
Author Organization [facility] Address [address] [place] [address] Care Team Providers Care Hospital Liaison Name Role Phone Unavailable Primary Care Provider Unavailabl e Source Comments Patient records contain information from all sites at [facility]. For routine questions regarding patient records, call [phone] during business hours, M-F 8:00 AM - 5:00 PM Central Time. Record requests for emergency care only can be directed to [phone] at any time.[facility] Social [...] Plan of Treatment Not on file Insurance [facility]
--- OUTSIDE RECORDS SUMMARY | 2024-03-26 15:39 | XMS_ITS | Clinical Summary ---
Author Organization [employer] [facility] Address [place], [place] [address] Care Team Providers Care Outboard Motor Mechanic Name Role Phone Van Boyer MD Primary Care Provider [phone] Allergies No known active allergies Medications Medication [...] Comments Blood Pressure 105/72 04/13/2022 10:45 AM FOLDER MACHINE OPERATOR Pulse 70 04/13/2022 10:45 AM FOLDER MACHINE OPERATOR Temperature 36.4 ??C (97.5 ??F) 04/13/2022 10:[address] Respiratory Rate 18 04/13/2022 10:45 AM FOLDER MACHINE OPERATOR Oxygen Saturation 98% 04/13/2022 10:45 AM FOLDER MACHINE OPERATOR Inhaled Oxygen Concentration - - Weight 54.4 kg (120 lb) 04/13/2022 8:12 AM FOLDER MACHINE OPERATOR Height 144.8 cm (4' 9) 04/13/2022 8:12 AM FOLDER MACHINE OPERATOR Body Mass Index 25.97 04/13/2022 8:12 AM FOLDER MACHINE OPERATOR Plan of Treatment Health Maintenance Due Date [...] this topic Medical Devices Implanted Type Area Swage Tender Device Identifier Shelf Expiration Date Model / Serial / Lot Stent Uret [id number] Contour - [id number] Implanted:Qty: 1 on 04/13/2022 by Hernan Pandya MD at [facility] Left: Ureter [facility] Urology 11/02/2024 [id number] / / [id number] Procedures Procedure Name Priority Date/Time Associated Diagnosis Comments SWITCH HOUSE OPERATOR THIN PREP PAP SCREEN IMAGED Routine 07/23/2020 8:50 AM FOLDER MACHINE OPERATOR from Last 3 Months or Most Recently Relevant to Health Maintenance Results * SWITCH HOUSE OPERATOR THIN PREP PAP SCREEN IMAGED (07/23/2020 8:50 AM FOLDER MACHINE OPERATOR) Case Report Gynecologic Cytology Report ? Case: [id number] ? Authorizing Provider: ??Van Boyer MD ? Collected: ? 07/23/2020 0850 ? Ordering Location: ? [facility] ?Received: ?07/26/2020 1417 ? First Screen: ?Soraya Flaherty ? Rescreen: ?Maryuri Harden ? Specimen: ?SWITCH HOUSE OPERATOR ThinPrep Vial Screening, Cervical/Vaginal ? 08/05/2020 12:11 PM CDT [facility] INTERPRETATION/ RESULT NEGATIVE FOR INTRAEPITHELIAL LESION OR MALIGNANCY (NIL) (none) 08/05/2020 12:11 PM [facility] IMEN ADEQUACY Satisfactory for evaluation Endocervical component present 08/05/2020 12:11 PM [facility] HPV REQUEST HPV if ASCUS 08/05/2020 12:11 PM CDT [facility] Date of LMP 07/10/2020 08/05/2020 12:11 PM CDT [facility] Last Pap Date 08/05/2020 12:11 PM T [facility] Comment:2017 Last Pap Result NIL 12:11 PM CDT [facility] Additional Information Ectropihic and minimal bleeding 08/05/2020 12:11 PM CDT [facility] Comment: Interpreted at [facility], Central Laboratory - [address], [place] [address] Automated Review Successful 08/05/2020 12:11 PM CDT [facility] Comment:Specimen processed s uccessfully by automated senior hris analyst device, ThinPrep Imaging System, [employer] Note The pap test is a [...] and malignant lesions. 08/05/2020 12:11 PM CDT [facility] Other (Cervical/Vagina l) 07/23/2020 8:50 AM FOLDER MACHINE OPERATOR 07/26/2020 2:17 PM CDT Van Boyer MD PATHOLOGY/CYTOLOGY [facility] [address] [place] [address], from Last 3 Months or Most Recently Relevant to Health Maintenance Advance Directives * Full Code (Latest Code Status on File) Date Activated Date Inactivated Comments 04/13/2022 7:56 AM 04/13/2022 2:40 PM Question Answer Comments Code Status Discussion: Unable to Assess Preferences, Provider to review later Care Teams Outboard Motor Mechanic Relationship Specialty Start Date End Date Van Boyer MD PCP - General Family Practice 04/05/22
[2024-03-27 13:34] LABS: Strep B DNA Probe Negative (Negative)
[2024-03-27 13:40] LABS: Strep B Susceptibility Needed? No
== END 2024-03-26 15:38 | disposition home or self-care (01) ==
LOC: NFLDREF 15:37
PROVIDERS: Visit Provider Obstetrics & Gynecology
DX: Z34.93 Encounter for supervision of normal pregnancy, unspecified, third trimester (principal); Z3A.36 36 weeks gestation of pregnancy
CPT/HCPCS: 87081; 87653

== ENCOUNTER 2024-04-19 17:44 | Inpatient (IN) | payer OTHER, SELFPAY ==
--- OUTSIDE RECORDS SUMMARY | 2024-04-19 16:26 | XMS_ITS | Clinical Summary ---
Author Organization [facility] Address [address] [place] [address] Care Team Providers Care Manufacturing Intern Name Role Phone Unavailable Primary Care Provider Unavailabl e Source Comments Patient records contain information from all sites at [facility]. For routine questions regarding patient records, call [phone] during business hours, M-F 8:00 AM - 5:00 PM Central Time. Record requests for emergency care only can be directed to [phone] at any time.[facility] Social History Tobacco Use Types [...] 101 07/27/2022 6:53 PM CDT Temperature 37.2 C (99 F) 07/27/2022 6:53 PM CDT Respiratory Rate - [...] Cervical/Vaginal Cancer Screening 07/24/2023 07/23/2020 COVID-19 Vaccine ( season) 2024 05/27/2021, 06/12/2020, [...] patient's age to complete this topic Insurance [facility]
--- OUTSIDE RECORDS SUMMARY | 2024-04-19 16:26 | XMS_ITS ---
Author Organization [facility] Address [address] [place] [address] Care Team Providers Care Technology Director Name Role Phone Unavailable Unavailable Unavailable Surgery Details Not on file Complications Check Surgery Details section. Procedure Estimated Blood Loss Check Surgery Details section. Procedure Findings Check Surgery Details section. Procedure Specimens Taken Check Surgery Details section.
--- OUTSIDE RECORDS SUMMARY | 2024-04-19 16:26 | XMS_ITS | Clinical Summary ---
Author Organization [facility] Address [place], [place] [address] Care Team Providers Care Gear Shaper Set Up Operator Name Role Phone Van Boyer MD Primary Care Provider [phone] Allergies No known active allergies Medications norgestimate-eth inyl estradioL (ORTHO TRI-CYCLEN) 0.18/0.215/0.25 mg-35 mcg (28) tablet Take 1 tablet by mouth once daily. 0 10/20/19 15 Active ketorolac tromethamine (TORADOL ORAL) Take 10 mg by mouth every 8 hours. For 5 days Active ondansetron HCl (ZOFRAN ORAL) Take 4 mg by mouth every 6 hours. Active HYDROcodone-acet aminophen (NORCO) 5-325 mg per tablet Take 1 Tablet by mouth every 4 hours if needed for Pain. Max acetaminophen dose: 4000 mg in 24 hrs. Active sulfamethoxazole /trimethoprim (BACTRIM ORAL) Take by mouth two times daily. Active traMADoL (ULTRAM) 50 mg tabletIndication s:Left ureteral calculus Take 1 Tablet (50 mg) by mouth every 6 hours if needed for Pain. 15 Tablet 04/13/2022 11:43 AM HOUSING OFFICER 04/13/20 22 Active Active Problems Problem Noted Date Diagnosed [...] drink = 0.6 oz pur e alcohol) Comments No Sex and Gender Information Value Date Recorded Sex Assigned at Not on file Legal Sex Female 7:40 PM HOUSING OFFICER Gender Identity Not on file Sexual Orientation Not on file Obstetrics History Last Filed Vital Signs Vital Sign Reading Time Taken Comments Blood Pressure 105/72 04/13/2022 10:45 AM HOUSING OFFICER Pulse 70 04/13/2022 10:45 AM HOUSING OFFICER Temperature 36.4 C (97.5 F) 04/13/2022 10:00 AM HOUSING OFFICER Respiratory Rate 18 04/13/2022 10:45 AM HOUSING OFFICER Oxygen Saturation 98% 04/13/2022 10:45 AM HOUSING OFFICER Inhaled Oxygen Concentration - - Weight 54.4 kg (120 lb) 04/13/2022 8:12 AM HOUSING OFFICER Height 144.8 cm (4' 9) 04/13/2022 8:12 AM HOUSING OFFICER Body Mass Index 25.97 04/13/2022 8:12 AM HOUSING OFFICER Plan of Treatment Health Maintenance Due Date [...] this topic Medical Devices Implanted Type Area Loom Overhauler Device Identifier Shelf Expiration Date Model / Serial / Lot Stent Uret [id number] Contour - [id number] Implanted:Qty: 1 on 04/13/2022 by Hernan Pandya MD at [facility] Left: [facility] 11/02/2024 [id number] / / [id number] Procedures Procedure Name Priority Date/Time Associated Diagnosis Comments MANNEQUIN MOUNTER THIN PREP PAP SCREEN IMAGED Routine 07/23/2020 8:50 AM HOUSING OFFICER from Last 3 Months or Most Recently Relevant to Health Maintenance Results * MANNEQUIN MOUNTER THIN PREP PAP SCREEN IMAGED (07/23/2020 8:50 AM HOUSING OFFICER) Case Report Gynecologic Cytology Report Case: [id number] Authorizing Provider: Van Boyer MD Collected: 07/23/2020 0850 Ordering Location: [facility] Received: 07/26/2020 1417 First Screen: Soraya Flaherty Rescreen: Maryuri Harden Specimen: MANNEQUIN MOUNTER ThinPrep Vial Screening, Cervical/Vaginal 08/05/2020 12:11 PM CDT [facility] INTERPRETATION/ RESULT NEGATIVE FOR INTRAEPITHELIAL LESION OR MALIGNANCY (NIL) (none) 08/05/2020 12:11 PM CDT [facility] IMEN ADEQUACY Satisfactory for evaluation Endocervical component present 08/05/2020 12:11 PM CDT [facility] HPV REQUEST HPV if ASCUS 08/05/2020 12:11 PM CDT [facility] Date of LMP 07/10/2020 08/05/2020 12:11 PM CDT [facility] Last Pap Date 08/05/2020 12:11 PM CDT [facility] Comment:2017 Last Pap Result NIL 12:11 PM CDT [facility] Additional Information Ectropihic and minimal bleeding 08/05/2020 12:11 PM CDT [facility] Comment: Interpreted at [facility] - [address], [place] [address] Automated Review Successful 08/05/2020 12:11 PM CDT [facility] Comment:Specimen processed s uccessfully by automated architectural draftsperson device, [employer] Imaging System, [employer] Note The pap test is a [...] and malignant lesions. 08/05/2020 12:11 PM CDT [facility] Other (Cervical/Vagina l) 07/23/2020 8:50 AM HOUSING OFFICER 07/26/2020 2:17 PM CDT us Van Boyer MD PATHOLOGY/CYTOLOGY Final Re sult [facility] [address] [place] [address], from Last 3 Months or Most Recently Relevant to Health Maintenance [place] [address] [facility] [employer] ATTN: FINANCIAL SERVICES [id number] [place] [id number] Advance Directives * Full Code (Latest Code Status on File) Date Activated Date Inactivated Comments 04/13/2022 7:56 AM 04/13/2022 2:40 PM Question Answer Comments Code Status Discussion: Unable to Assess Preferences, Provider to review later Care Teams Gear Shaper Set Up Operator Relationship Specialty Start Date End Date Van Boyer MD PCP - General Family Practice 04/05/22
--- OUTSIDE RECORDS SUMMARY | 2024-04-19 16:26 | XMS_ITS | Referral Summary ---
Author Organization [facility] Address [address] [place] [address] Care Team Providers Care Editorial Intern Name Role Phone Unavailable Primary Care Provider Unavailabl e Source Comments Patient records contain information from all sites at [facility]. For routine questions regarding patient records, call [phone] during business hours, M-F 8:00 AM - 5:00 PM Central Time. Record requests for emergency care only can be directed to [phone] at any time.[facility] Social History Tobacco Use Types Packs/Day Years [...] Plan of Treatment Not on file Insurance [facility]
[2024-04-19 16:33] VITALS: PULSE 97; O2SAT 97
[2024-04-19 16:44] VITALS: BP 125/68; PULSE 96
[2024-04-19 16:45] VITALS: RESP 16; TEMP 36.6
[2024-04-19 16:46] LABS: Amnisure Rom* POSITIVE
--- NOTE | 2024-04-19 19:10 | W.PM.LDBA ---
Subjective History of Present Illness Date Seen: 04/19/24 Narrative: Patient is being admitted to Labor and Delivery for PROM. She is a 28 year old at 39 6/7 weeks gestation. Her full history and physical was dictated by Dr. Shahid on 04/02/24. Please see this for details. Patient with SROM at around 3pm today. Upon evaluation at labor and delivery, rupture of membranes not obvious, patient had AmniSure completed and found positive. Cervical check upon admission by nursing found at 3.5 cm, 50% effaced. Patient has not been experiencing regular painful contractions. Specific Issues/Plans : Venkat # Hx of marijuana use, stopped when occurred Negative UDS on 10/11 # Hx of kidney stones requiring stent placement # Hx of anxiety, currently in therapy. Denies any hx of med use # Hx of asthma last inhaler use as a kid, but was taking Singulair after multiple bouts of Covid. # Anemia (Hgb 10.7 on 03/11/24) Oral iron supplement prescribed Needs PP pap COVID 2022: fully vaccinated, one booster Covid 2023: 03/11/24 Flu 2023: Declines 02/14 - getting at her work TDAP: 02/15/2024 RSV:03/11/24 32wk Mental Health: 34wk Hgb: 10.7, on PO iron GBS negative OB - Problem Based A/P Additional Plan (1) PROM (premature rupture of membranes): Status: Acute Plan 1. Admit for delivery after SROM. Will offer IV oxytocin for labor augmentation. 2. GBS negative no need for antibiotics. 3. Candidate for pain management as needed and preferred by patient. 4. Expect a vaginal delivery. OB Exam Physical Exam Vital signs: Temp Pulse Resp BP Pulse Ox 97.9 F 96 16 125/68 97 04/19/24 16:45 04/19/24 16:44 04/19/24 16:45 04/19/24 16:44 04/19/24 16:33 Detailed Labor and Delivery Exam Patient Gravid: Yes Dilation (cm): 3 Effacement (%): 50 Contraction intensity: Mild Fetus (Single) Station: -2 Amniotic Membrane Status: SROM Amniotic Membrane Fluid Description: Clear Heart Rate Baseline: 140 Monitor Accelerations: Present Monitor Decelerations: None Associate Justice Variability: Moderate (6-25)
[2024-04-19 21:00] VITALS: BP 108/65; PULSE 94; PULSE 95; TEMP 36.4; O2SAT 96
[2024-04-19 21:40] LABS: Basophils Absolute Auto 0.02 K/uL (0.00-0.30); Basophils Percent Auto 0.2 % (0.0-3.0); Eosinophils Absolute Auto 0.16 K/uL (0.00-0.50); Eosinophils Percent Auto 1.6 % (0.0-7.0); Hematocrit 40.3 % (33.0-51.0); Immature Granulocytes Abs Auto 0.16 K/uL (0.00-0.30); Immature Granulocytes Pct Auto 1.6 %; Mean Corpuscular HGB Conc 32 gm/dL (32-36); Mean Corpuscular Hemoglobin 27 pg (26-34); Mean Corpuscular Volume 85 fL (80-100); Monocytes Percent Auto 7.5 % (0.0-11.0); Neutrophils Absolute Auto 6.93 K/uL (1.7-7.0); Neutrophils Percent Auto 70.1 % (42.0-72.0); Platelet Count* 245 K/uL (140-440); RDW Coefficient of Variation % 19.6 % (11.5-15.5); Red Blood Count 4.74 m/uL (4.00-5.20); White Blood Count* 9.89 K/uL (4.50-11.00)
[2024-04-19 21:44] LABS: Slide Review Reflex No
[2024-04-19 22:08] VITALS: TEMP 36.6
[2024-04-19 23:00] VITALS: TEMP 36.4
[2024-04-20] VITALS (122 sets, daily range): BP systolic 81–158; BP diastolic 47–126; PULSE 72–106; RESP 16–18; TEMP 36.6–37.6; O2SAT 94–100; BMI 33.5
[2024-04-20] MEDS: LACTATED RINGERS 1000 ML 1,000 ML 500 ML IV (00:01)
[2024-04-20] MEDS: LIDOCAINE 2% (PF) 5 ML VIAL EPIDURAL (01:26)
[2024-04-20] MEDS: ROPIVACAINE 0.2% 100 ml 100 ML 10 MG EPIDURAL (01:33)
[2024-04-20] MEDS: PHENYLEPHRINE 100 MCG/ML SYRINGE IVP ×2 (01:48→01:56)
[2024-04-20] MEDS: ONDANSETRON 2 MG/ML inj 4 MG IV (02:02)
[2024-04-20] MEDS: ePHEDrine sulfate 5 MG/ML inj 10 MG IVP ×4 (02:07→10:19)
[2024-04-20] MEDS: LACTATED RINGERS 1000 ML 1,000 ML 125 ML IV ×2 (04:05→10:41)
[2024-04-20] MEDS: OXYTOCIN 30 unit/500 ML in NS 30 UNIT/500 ML BAG IVPB (06:55)
[2024-04-20] MEDS: CALCIUM CARBONATE 500 MG CHEW PO ×2 (07:18→11:21)
[2024-04-20] MEDS: ROPIVACAINE 0.2% 100 ml 100 ML 500 MG EPIDURAL (10:43)
[2024-04-20] MEDS: AZITHROMYCIN 500 MG in 0.9 % SODIUM CHLORIDE 250 ml 250 ML 255 MG IVPB (15:48)
--- NOTE | 2024-04-20 15:50 | PM.OBPNL ---
Subjective Date Seen: 04/20/24 Narrative: Okay Objective Vital Signs: Last Vital Signs Temp 98.3 F 04/20/24 13:30 Pulse 93 04/20/24 15:49 Resp 18 04/20/24 13:30 BP 98/55 L 04/20/24 15:49 Pulse Ox 97 04/20/24 14:19 Pelvic Exam Dilation (cm): 10 Effacement (%): 100 Station: 0 Contractions Monitor mode: Internal Contraction pattern: Regular Contraction intensity: Strong/Firm Pitocin Rate (mU/min): 4 Assessment Assessment: other Station: 0 Amniotic Membrane Status: SROM Status: Category l Heart Rate Baseline: 115 Long-Term Variability: Moderate (6-25) Monitor Accelerations: Present Monitor Decelerations: Early Labor Progress: Arrest of descent, suspected OP and asynclitic. Plan Plan: Patient admitted after SROM and had been progressing well w/o additional intervention until earlier this morning where contractions started to space out. IV Oxytocin was recommended and started and patient continued to dilate adequately. At around 10-10:30am today I was told by nursing that she had remained the same cervical dilation after 2 checks, she had been found 7cm/80%/0 station. At this time, I checked her and palpated a forebag and recommendation was given to open forebag and continue process. Upon re check at around 12pm cervix was found 8.5 and recommendation was to place IUPC to better monitor UCs and IV Oxytocin titration. MVUs noted to be initially not adequate, but after Oxytocin up titration MVUs with episodes of adequacy. I then re evaluated her again at around 2pm and she was found a rim, I had her do a couple of pushed to try to pass her cervix as it was very stretchy, at this time I also was suspicious that baby was asynclitic. Recommended to proceed with position changes, I then re evaluated at around 3pm and she was found complete, station still 0, +1 with pushing. I re evaluated again after 1 hour of pushing and station and positioning exactly the same. I highly suspect LOP and asynclitic position. Discussed findings with Clementina and her , at this point I do think we have enough information to recommend a delivery. Discussed that the only other alternative would be to try to manually rotate but with asynclitism it is usually difficult, but something we could try. Patient desires to proceed with section at this time. Discussed how surgery is performed, discussed family centered approach. Discussed risks of surgery such as bleeding and needing an emergency blood transfusion, risk of infection, damage to organs nearby, blood clots. Discussed interventions to decrease risks such as prophylactic antibiotics, Bond catheter, SCDs. Discussed usual recovery after and what to expect such as restrictions after surgery etc... Informed consent discussed and reviewed with patient, will proceed with surgery at this moment as unscheduled delivery.
--- NOTE | 2024-04-20 16:06 | PM.OBPRCCS ---
Procedure Date of procedure: 04/20/24 Pre-op diagnosis: IUP at 40 0/7 weeks, PROM, arrest of descent Post-op diagnosis: same Procedure Done: Global Will [facility] bill your pro fee for this procedure?: Yes Blood Loss Measurement Type: QBL Bakri Used: No IV fluids (mL): 500 Urine Output (mL): 250 (blood tinged, same as upon insertion) Urine Output Comment: blood tinged, same as upon insertion Surgeon: Erika Talavera MD Anesthesia Type: Epidural Findings: FINDINGS: Live-born male , vertex ROT presentation, Apgars 8 and 9 at 1 and 5 minutes respectively. weight: 3205g. Procedure Name: Primary Low Transverse Section Procedure Description: PROCEDURE: After obtaining informed consent, the patient was taken to the operating room where epidural anesthesia was obtained and found to be adequate. She was prepared and draped in the normal sterile fashion in the dorsal supine position with a leftward tilt. A Pfannenstiel skin incision was made with a scalpel about 2 cm above symphysis pubic bone, 12-14 cm in length. This incision was carried down to the underlying layer of fascia with the Bovie and scalpel. The fascia was incised in the midline and the incision extended laterally. The superior and inferior aspects of the fascial incision were grasped with Harry clamps, elevated and the underlying rectus muscles dissected off sharply and with electrocautery. The rectus muscles were then in the midline. The Napoleon O retractor was then placed into the incision. The lower uterine segment was then incised in a transverse fashion with the scalpel. Upon entry into the uterus, clear amniotic fluid was noted. The uterine incision was extended cephalo caudally with blunt finger fractionation. The 's head was delivered atraumatically, followed by the remainder of the 's body. The nose and mouth were suctioned with the bulb suction. The cord was doubly clamped and cut, and the was handed off the field to [facility] for evaluation. The placenta was delivered spontaneously with umbilical cord traction and fundal massage. The uterus was cleared of all clots and debris. Uterine atony identified and managed with IV Oxytocin 30 units, 1g of TXA and 800mcg of rectal Cytotec. The uterine incision was reapproximated in a running locking fashion with a 0 Vicryl suture. A 2nd layer of the same suture was used to imbricate in horizontal fashion. The gutters were inspected and cleared of blood clot. All instruments and retractors were removed. The anterior peritoneum was reapproximated in a running fashion with a 3-0 Vicryl suture. The subfascial tissues were carefully inspected and hemostasis assured. The fascia was reapproximated in a running fashion with a looped 0 Vicryl suture. The subcutaneous tissues were inspected and hemostasis was assured. The subcutaneous fat layer was reapproximated with running sutures of 3-0 Vicryl. The skin was closed in a subcuticular fashion with 4-0 Monocryl. LiquiBand and dressing were applied. The patient tolerated the procedure well. Sponge, lap, needle, and instrument counts were reported as correct x2. The patient was taken to the recovery room, awake, and in stable condition. She did receive 2 grams of IV Ancef and 500mg of IV Azithromycin preoperatively. Complications: None Pathology: specimen obtained, sent to pathology (Placenta) Surgery Debrief Performed: Yes Condition: stable Disposition: floor
[2024-04-20] MEDS: miSOPROStoL 800 MCG/4 TABLET PR (16:51)
[2024-04-20] MEDS: KETOROLAC 30 MG/ML inj IVP ×2 (17:10→23:28)
--- NOTE | 2024-04-20 18:10 | W.PM.NB ---
Nerve Block Nerve Block Time Seen by Provider: 17:55 Date Seen: 04/20/24 Type of block requested by surgeon for post-operative analgesia: TAP Side: bilateral Time out performed: Yes Verification of patient name: Yes Verification of date of : Yes Site marking: site marked Name of person performing procedure: Duy Contreras Continuous monitoring Was continuous monitoring of O2 sat, B/P, cartography/mapping technician, recorded every 15 minutes?: Yes Procedure Ultrasound guided. Images saved: Yes Medications given in 5ml increments after negative aspiration: Marcaine %: 0.25 mL: 30 Needle gauge: 20 and Exparel mL: 10 Needle gauge: 20 Patient tolerated procedure well: Yes Block Charges Block Charge (with Pro Fee): TAP Bilateral Use of Ultrasound Machine for Block: Yes- US Guidance/pain block
--- NOTE | 2024-04-20 18:13 | P.ANES_ITS ---
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
[2024-04-20] MEDS: ACETAMINOPHEN 500 MG TABLET 1000 MG PO (21:42)
[2024-04-20] MEDS: LACTATED RINGERS 500 ML 500 ML 125 ML IV (22:10)
[2024-04-21] VITALS (20 sets, daily range): BP systolic 90–111; BP diastolic 58–79; PULSE 72–91; RESP 16; TEMP 36.6–37.1; O2SAT 95–100
[2024-04-21] MEDS: KETOROLAC 30 MG/ML inj IVP ×4 (05:21→23:38)
[2024-04-21 06:28] LABS: Hemoglobin* 9.6 gm/dL (12.0-16.0)
--- NOTE | 2024-04-21 09:24 | PM.ANBPRC ---
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 . Nonsmoker SOCIAL? ? Education: masters? ? 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 ? Partner: Venkat, , Boring Machine Operator Double End ? ? Lives with: Venkat ? ? Pets: guinea pigs? ? Abuse: Denies past. Unable to assess current, partner present? ? Special Diet: lactose sensitive? ? Ok with a blood transfusion: yes? ? Culture or uatsdin beliefs: denies? RISK FACTORS? ? Exercise Times/wk: denies? ? Depression/Anxiety: anxiety? ? Previous Treatments: denies Therapy: Is doing therapy currently JONES: 2 PHQ 9: 5? ? Seat Belt Use: Routinely ? Smoking: Denies past/present? ? Alcohol/day: Denies while ? ? Caffeine: occasionally? ? Drug Use: Stopped marijuana when occurred. ? ? What is your current living situation?: I presently have a place to live Problems where you live: no known problems In the past 12 months, utilities in danger of being shut off: no In the past 12 mos, have been you worried that your food would run out before you had money to buy more?: never true In the past 12 mos, the food you bought just didn't last and you didn't have money to buy more?: never true Smoking Status: Never smoker Do you use any of these nicotine containing products: None Second hand tobacco smoke exposure: No How often do you have a drink containing alcohol: monthly or less How many standard drinks containing alcohol do you have on a typical day: 1 or 2 How often do you have six or more drinks on one occasion: Never AUDIT-C Alcohol total score: 1 Non-prescribed substance use: denies use How often does anyone, including family, friends and others, physically hurt you: never How often does anyone, including family, friends and others, insult or talk down to you: never How often does anyone, including family, friends and others, threaten you with harm: never How often does anyone, including family, friends and others, scream or curse at you: never service: No Meds Home Medications and Allergies Home Medications ?Medication ?Instructions ?Recorded ?Confirmed ?Type vits 75-iron 28 mg-folic 1 pkg PO DAILY 09/10/23 04/19/24 History acid 800 mcg-omega-3 oral combo pack (One A Day Women's DHA) psyllium husk 0.4 gram capsule 0.4 g PO QDAY 09/10/23 04/19/24 History (Daily Fiber) loratadine 10 mg tablet (Claritin) 10 mg PO QDAY PRN 09/14/23 04/19/24 History famotidine 10 mg tablet (Pepcid AC) 10 mg PO QDAY 10/12/23 04/19/24 History Allergies Allergy/AdvReac Type Severity Reaction Status Date / Time lactose Allergy Mild Diarrhea Verified 04/16/24 10:09 Results Labs Labs: Laboratory Results - last 24 hr 04/21/24 06:01 Hgb 9.6 L Vital Signs Vital Signs: Last Vital Signs Temp 97.9 F 04/21/24 05:19 Pulse 88 04/21/24 08:45 Resp 16 04/21/24 08:45 BP 90/60 04/21/24 08:45 Pulse Ox 98 04/21/24 08:45 O2 Del Method Room Air 04/21/24 08:45 Weight: 70.307 kg Height: 144.78 cm Anesthesia Procedures Epidural Insertion Patient Location: OB Start Time: 01:15 Stop Time: 01:55 Start Date: 04/20/24 Stop Date: 04/20/24 Reason for Block: procedure for pain Patient Position: sitting Performed By: Sin Negrete Preanesthetic Checklist: IV checked, risks and benefits discussed, surgical consent, monitors and equipment checked, pre-op evaluation, timeout performed and anesthesia consent Prep: chlorhexidine gluconate Monitoring: blood pressure monitoring, continuous pulse oximetry and heart rate Approach: midline Vertebral Space: lumbar (1-5) Epidural Technique: HERVE saline Needle Type: Tuohy needle Injection Technique: continuous catheter Needle gauge: 17 Needle Length (cm): 10 cm Needle Insertion Depth (cm): 6 Catheter Gauge: 19 Catheter Type: multi-orifice Catheter at skin depth (cm): 12 Test Dose Result: negative and lidocaine 1.5% with epinephrine 1 to 200,000
--- NOTE | 2024-04-21 10:43 | PM.OBPNVD1 ---
OB - PN:Subj Subjective Date Seen: 04/21/24 Interval history: The patient feels well.? The pain is well controlled with current medications.? She has no new complaints.? Urinary output is adequate and she is voiding without difficulty.? Has a good appetite, is tolerating a general diet, is not yet passing flatus, and has not had a bowel movement.? Has scant amount of rubra lochia.? She is ambulating well. She is and reports it is going better with assistance.? OB - PN: Obj Exam Physical Exam: Vital signs: Temp Pulse Resp BP Pulse Ox O2 Del Method 97.9 F 88 16 90/60 98 Room Air 04/21/24 05:19 04/21/24 08:45 04/21/24 08:45 04/21/24 08:45 04/21/24 08:45 04/21/24 08:45 Narrative: GENERAL APPEARANCE:? normal affect, alert, no distress MOOD:? appropriate CHEST:? clear to auscultation HEART:? regular rate and rhythm ABDOMEN:? soft, non-tender the uterine fundus is At Umbilicus, Midline and is appropriate for the stage of recovery. EXTREMITIES:? normal and moderate edema Incision:Surgical dressing with no surrounding erythema, or discharge OB - PN: Obj Data Labs Labs: Laboratory Results - last 24 hr 04/21/24 06:01 Hgb 9.6 L OB - PN: A/P Delivery Assessment and Plan (1) PROM (premature rupture of membranes): Status: Acute Plan day: 1 Plan: routine care Comments: S/P section for arrest of descent Routine PP care VSS May see today Anticipate discharge 04/22/2024
[2024-04-21] MEDS: DOCUSATE SODIUM 100 MG CAPSULE PO (11:02)
[2024-04-22] MEDS: OXYCODONE 5 MG TABLET PO ×3 (00:04→14:20)
[2024-04-22] MEDS: ACETAMINOPHEN 500 MG TABLET 1000 MG PO ×3 (00:04→13:41)
[2024-04-22] MEDS: IBUPROFEN 600 MG TABLET PO ×2 (04:00→10:35)
[2024-04-22 08:34] VITALS: BP 113/76; PULSE 77; RESP 16; TEMP 36.4; O2SAT 99
[2024-04-22] MEDS: DOCUSATE SODIUM 100 MG CAPSULE PO (08:45)
[2024-04-22] MEDS: FERROUS SULFATE 325 MG TABLET PO (08:45)
--- NOTE | 2024-04-22 12:40 | P.DS_ITS ---
DS: Providers Provider Date Seen: 04/22/24 Date of admission: 04/19/24 17:44 Primary care physician: Not a Local Provider Admitting Clinician: Rebecca Talavera MD Attending Physician on discharge: Cheryl Webber CNM Date of Discharge: 04/22/24 DS: Diagnosis Discharge Diagnosis (1) care following delivery: Status: Acute (2) care and examination of lactating mother: Status: Acute Exam Narrative: Exam Narrative: VSS. ?Afebrile GENERAL APPEARANCE: ?normal affect, alert, no distress MOOD: ?appropriate HEENT: normocephalic, neck supple, full ROM CHEST: ?Symmetrical chest wall movement. ?Normal respiratory effort. ?Clear to auscultation HEART: ?regular rate and rhythm ABDOMEN: ?soft, non-tender. Uterine fundus is firm, at Umbilicus, Midline and is appropriate for the stage of recovery. ?Bowel sounds present. EXTREMITIES: ?normal and no edema SKIN: warm, dry. ? ?Incision clean/dry/well approximated. ?No signs of infection noted. Const: Vital Signs, click to edit/add: Vital Signs - 24 hr 04/21/24 13:30 04/21/24 14:30 04/21/24 15:30 Temperature Pulse Rate [Pulse Oximeter] Respiratory Rate 16 16 16 Blood Pressure [Le ft Arm] Pulse Oximetry Oxygen Delivery Me thod 04/21/24 16:30 04/21/24 17:20 04/21/24 17:20 Temperature 97.8 F Pulse Rate [Pulse Oximeter] 88 Respiratory Rate 16 16 16 Blood Pressure [Le ft Arm] 111/76 Pulse Oximetry 95 Oxygen Delivery Me thod Room Air 04/21/24 18:21 04/21/24 23:34 04/22/24 08:34 Temperature 98 F 97.5 F L Pulse Rate [Pulse Oximeter] 85 77 Respiratory Rate 16 16 16 Blood Pressure [Le ft Arm] 111/79 113/76 Pulse Oximetry 100 99 Oxygen Delivery Me thod Room Air Room Air Documenting provider has reviewed patient's vital signs: yes OB - DS: Summary Hospital Course Hospital Course: Clementina is a 28 y.o. who was admitted to [facility] for PROM. ?She had an uncomplicated .?The patient feels well. ?The pain is well controlled with current medications. ?She has no new complaints. ?She is breast feeding and reports things are going well.? the patient has done well.? Vitals have been stable.? She has remained afebrile.? Has a good appetite, is tolerating a general diet. ?She is voiding without difficulty.? She is passing gas and has not had a bowel movement.? She is ambulating and denies any dizziness.? Has Small amount of rubra lochia. ?She is undecided on her plan for prevention. Peripartum Data delivery method: Primary C/S; Labored Laceration description: None Procedures: Procedures Operation Date: 04/20/24 16:30 Actual Procedure Side Surgeon p Primary Section Rebecca Talavera MD complications: none [place] Gender: Male Discharge Plan: Home Status at Discharge Functional status at discharge: independent ambulation Overall status at discharge: patient is progressing back to baseline Time Spent with Patient Time attestation: Total time spent providing and/or coordinating discharge services: Time spent: Less than 30 minutes Discharge Plan Discharge Disposition: Home, Self-Care Date of Admission: 04/19/24 17:44 Attending Provider on Discharge: Cheryl Webber Primary Care Provider: Provider,Not a Local Condition: Stable Anticipated Discharge Date/Time: 04/22/24 12:45 Discharge Medications: New acetaminophen 500 mg Tablet 1,000 mg PO Q6H PRN (Reason: Pain) Qty: 0 0RF ferrous sulfate 325 mg (65 mg iron) Tablet 325 mg PO Q48H Qty: 60 0RF docusate sodium 100 mg Capsule 100 mg PO DAILY Qty: 90 1RF ibuprofen 600 mg Tablet 600 mg PO Q6H PRN (Reason: Pain) Qty: 60 0RF oxycodone 5 mg Tablet 5 - 10 mg PO Q4H PRN (Reason: Pain) Qty: 10 0RF Continued loratadine [Claritin] 10 mg tablet 10 mg PO QDAY PRN psyllium husk [Daily Fiber] 0.4 gram capsule 0.4 g PO QDAY One A Day Women's DHA 28 mg iron- 800 mcg combo pack 1 pkg PO DAILY famotidine [Pepcid AC] 10 mg tablet 10 mg PO QDAY Discontinued ferrous sulfate 325 mg (65 mg iron) tablet 325 mg PO QDAY Qty: 60 0RF docusate sodium [Colace] 100 mg capsule 100 mg PO QDAY Qty: 60 0RF Discharge Orders: Discharge Order (Routine); Ordered 04/22/24 Ordered By: Cheryl Webber Patient Education: OB Over the Counter Medication Information, OB /Breast Feeding Additional Instructions: Discharge instructions were reviewed with the patient including signs and sym ptoms of infection and home going medications Lifting Restrictions: 20 pounds for 6 weeks No not submerge incision under water X 2 weeks? Nothing vaginally for 6 weeks: no tampons or intercourse Do not drive while taking narcotic pain medication(s) Off Work or School for 8 weeks Symptoms to report to doctor: * Bleeding that saturates more than one pad per hour * Passing clots larger than the size of a golf ball * Pain not relieved by prescribed medication * Fever above 100.4 degrees Fahrenheit * A foul vaginal odor * Difficulty in emotions, mood, and functions * Thoughts of hurting yourself and/or * Painful, reddened area in your breast * Any drainage, redness, or tenderness in your IV/epidural site * Severe headache that doesn't improve after taking medications * Changes in vision, including temporary loss of vision, blurred vision, and/or light sensitivity * Upper abdominal pain (usually under ribs on the right side) * Decrease in urination or painful, frequent urinating * Chest pain * Shortness of breath * Tenderness or pain with redness and/swelling in the calf(s) of your leg 2-week visit: incision check, discuss infant feeding concerns, review control options and screen for anxiety/depression. 6-week visit for an annual exam. consultation services are available to all mothers and babies for the first year after delivery.? To make an appointment, please call [phone]. Activity Level: Activity as Tolerated Discharge Diet: Regular Follow Up Appointments: [facility] [Provider Group] Forms: MyHealth Info Instructions
[2024-04-22] MEDS: SIMETHICONE 80 MG TAB.CHEW PO (14:20)
[2024-04-23 02:44] LABS: Rapid Plasma Reagin (RPR) Non Reactive (Non Reactive)
== END 2024-04-22 16:00 | disposition home or self-care (01) | DRG 787 ==
LOC: OB OUT 17:44 → OB 17:44
PROVIDERS: Admitting Provider Obstetrics & Gynecology; Visit Provider Obstetrics & Gynecology
PROC: 10D00Z1 Extraction of Products of Conception, Low, Open Approach (ICD-10-PCS; CPT 59514; principal; 2024-04-20 16:15)
DX: O42.12 Full-term premature rupture of membranes, onset of labor more than 24 hours following rupture (principal); D62 Acute posthemorrhagic anemia; O32.4XX0 Maternal care for high head at term, not applicable or unspecified; Z3A.39 39 weeks gestation of pregnancy; Z37.0 Single live birth; O62.2 Other uterine inertia; O99.02 Anemia complicating childbirth; D64.9 Anemia, unspecified; O99.344 Other mental disorders complicating childbirth; F41.9 Anxiety disorder, unspecified; O99.62 Diseases of the digestive system complicating childbirth; K21.9 Gastro-esophageal reflux disease without esophagitis; Z09 Encounter for follow-up examination after completed treatment for conditions other than malignant neoplasm; F12.11 Cannabis abuse, in remission; Z87.442 Personal history of urinary calculi; G89.18 Other acute postprocedural pain
CPT/HCPCS: 01961; 01967; 36415; 64488; 76942; 84112; 85018; 85025; 86592; 86850; 86900; 86901; 88307; 99140; A9270; C9290; J0456; J0665; J1885; J2274; J2371; J2405; J2795; J3010; J7050; J7120

== ENCOUNTER 2024-05-16 14:33 | Outpatient (CLI) | payer OTHER, SELFPAY ==
--- NOTE | 2024-05-16 16:47 | W.PM.LAC.MC ---
Consult Note - Mom Date of Visit Date of visit: 05/16/24 Reason for consultation: Assistance Needed (assist to latch without shield and multiple questions re: progression) Visit Code: Visit Patient's Information Phone number: [phone] : 1 Para: 1 Allergies lactose Allergy (Mild, Verified 05/05/24 10:42) Diarrhea Mother's Medical History: Medical History (Updated 05/01/24 @ 14:29 by Rebecca Talavera MD) PROM (premature rupture of membranes) ?O42.90 - Premature rupture of membranes, unspecified as to length of time between rupture and onset of labor, unspecified weeks of gestation (ICD-10) Constipation due to pain medication ?K59.03 - Drug induced constipation (ICD-10) Kidney stone ?N20.0 - Calculus of kidney (ICD-10) Vasovagal episode ?R55 - Syncope and collapse (ICD-10) Asthma ?J45.909 - Unspecified asthma, uncomplicated (ICD-10) Work Plans: return to work end of june; hopes to continue , and pumping while at work has 2 pumps - a Spectra and a hands free medela Delivery Information Delivery type: Primary C/S; Non-Labored Gestational Age: 26 days Gestational Weight For Age: AGA Weight: 3.205 kg Baby's Information Baby's Age at Visit: 26 days Baby's Provider or Clinic: [facility] Jaundice: No Past Experience Past Experience: No Current Frequency of Day Feedings: every 3 hours Frequency of Night Feedings: every 4-5 hrs Both Breasts: Yes (most of the time) Suck: strong Latch: with nipple shield Length of Time: 10 min ea side most feedings; occas just 15 min on 1 side Goals: probably 1 year, at least 6 months Pumping Pumping: Yes Quantity Pumped: gets 2-5 oz if pumps after first AM feeding Supplementing EBM Supplement: No Formula Supplement: No Baby Elimination Number of Wet Diapers a Day: ea feeding Number of BM a Day: 4-6/day Breast/Nipple Condition Breast Information: Breasts are symmetrical with rounded lower quadrants, intramammary distance is less than 1.5 inches. No erythema. Nipples are supple, flattish prior to feeding. Mom reports her nipples do every during pumping and while using the nipple shield, but cannot get baby latched without shield right now. Breast Shape: Round and Firm Engorgement: No Maternal Nipple Condition - Left: Flat Nipple Maternal Nipple Condition - Right: Flat Nipple Sore Nipples: No Baby Assessment Skin: Normal Tongue/frenulum: Normal/elastic Palate: Average Lips: Relaxed and Symmetrical Jaw Alignment: Symmetrical Mucosa: [place], moist Onsite Observation Pre-Feed weight: 3.674 kg Post-Feed weight: 3.746 kg Milk Transferred (mL): 72 Position: Cross cradle Attachment/latch-on achieved: With difficulty, With nipple shield and Not achieved (without nipple shield, but babe willing to try, almost latched a few times without shield) Suck pattern: Suck burst and normal rest Swallow: Audible, consistent Behavior following feed: Alert, content Pre-Nursing Left Nipple: Within Normal Limits Pre-Nursing Right Nipple: Within Normal Limits Post-Nursing Left Nipple: Within Normal Limits Post-Nursing Right Nipple: Within Normal Limits Assessments/Interventions Assessments/Interventions: Worked with mom on asymmetric latch technique and a breast sandwich to help kassy nipple prior to bringing baby to the breast Discussed need for gentle pressure of baby into breast to help him get and stay latched if successful. Recommend mom try 1-2 times/day to latch without shield as don't know if/when he could figure it out; and try both breasts as her left nipple everts a bit more than her right side. he may figure out one side before the other. Once he is able to latch without the shield, then try more frequently with feedings. Also discussed that as long as her milk supply is good, and he is gaining weight, it is ok to continue using the nipple shield if needed for . Mom asking questions about adding bottles in to prepare for her return to work and a pumping routine for work; these questions all answered. Recommend introducing the bottle now and continue with a few bottles a week so he's able and willing. paced bottle feeding discussed. Discussed the use of her two different kinds of pumps; recommend trying them both before she returns to work to know which one will suit her better at that time. Education provided: Early feeding cues to maximize timing of latching, Asymmetric latch technique for wide/deep latch to increase milk, Transfer for baby and increase comfort for mom, Supply/demand nature of milk supply, Use of nipple shield and Milk collection, storage Handouts Provided: Paced Bottle Feeding Follow-Up Suggested follow up: Appointment as needed Time Spent Time spent with patient (min): 80 Meds Home Medications and Allergies Home Medications ?Medication ?Instructions ?Recorded ?Confirmed ?Type vits 75-iron 28 mg-folic 1 pkg PO DAILY 09/10/23 05/05/24 History acid 800 mcg-omega-3 oral combo pack (One A Day Women's DHA) loratadine 10 mg tablet (Claritin) 10 mg PO QDAY PRN 09/14/23 05/05/24 History cholecalciferol (vitamin D3) 125 125 mcg PO QDAY 05/05/24 05/05/24 History mcg (5,000 unit) capsule Allergies Allergy/AdvReac Type Severity Reaction Status Date / Time lactose Allergy Mild Diarrhea Verified 05/05/24 10:42
== END 2024-05-16 14:34 | disposition home or self-care (01) ==
LOC: OB LAC 14:35
PROVIDERS: Visit Provider Obstetrics & Gynecology
DX: Z39.1 Encounter for care and examination of lactating mother (principal)
CPT/HCPCS: G0463

== ENCOUNTER 2024-06-03 10:05 | Outpatient (CLI) | payer OTHER, SELFPAY ==
[2024-06-05 00:57] LABS: HPV Source Cervix; HPV, High Risk by TMA Not Detected
== END 2024-06-03 10:06 | disposition home or self-care (01) ==
PROVIDERS: Visit Provider Obstetrics & Gynecology
DX: Z12.4 Encounter for screening for malignant neoplasm of cervix (principal); Z11.51 Encounter for screening for human papillomavirus (HPV)
CPT/HCPCS: 87624; 87625; 88141; 88142